=== PATIENT | male | born 1950 | race Two or more races ===

== ENCOUNTER 2016-07-27 17:26 | Inpatient (IN) | payer OTHER ==
[~2016-07-27] VITALS: Ht 165.1 cm; Wt 99.4 kg
[~2016-07-27 17:26] MED LIST: METF-490 PO; METO25TA5; OMEP20CA5 PO; [UNRECOGNIZED DRUG - CODE]
[2016-07-27] MEDS ORDERED: ALBUTEROL SULF 2.5 MG/0.5ML(0.5%) NEB SOLN ONE (21:41)
[2016-07-27] MEDS ORDERED: methylPREDNISolone SOD SUCC 125 MG/2 ML VL IM ONE (21:45)
[2016-07-27] MEDS ORDERED: ALBUTEROL SULF 2.5 MG/0.5ML(0.5%) NEB SOLN NEB ONE (21:45)
[2016-07-27] MEDS ORDERED: IPRATROPIUM BROM 0.5 MG/2.5ML INH SOL NEB ONE (21:45)
[2016-07-27 22:22] LABS: Albumin 3.8 g/dL (3.4-5.0); BUN/Creatinine Ratio 19.8; Calcium 8.1 mg/dL (8.5-10.1); Potassium 4.1 mmol/L (3.5-5.1)
[2016-07-27 22:24] LABS: Bilirubin, Total 0.4 mg/dL (0.2-1.0); Total Protein 7.8 g/dL (6.4-8.2)
[2016-07-27 22:32] LABS: Basophils # (auto) 0 uL; Basophils % (auto) 0.3 % (0.0-2.0); DEFINITIVE VIEW TRANSMISSION; Eosinophils # (auto) 0.5 uL; Eosinophils % (auto) 6.2 % (0.0-7.0); Hematocrit 42.7 % (41.0-53.0); Hemoglobin 13.4 g/dL (13.5-17.5); Lymphocytes % (auto) 24.3 % (10.0-50.0); Mean Corpuscular Hemoglobin 25.2 pg (28.0-32.0); Mean Corpuscular Hgb Conc. 31.5 g/dL (32.0-36.0); Mean Platelet Volume 8.9 fL (7.4-10.4); Monocytes # (auto) 0.7 uL; Neutrophils % (auto) 60.2 % (37.0-80.0); Platelet Count (auto) 276 10^3/uL (140-450); White Blood Cell 8.3 10^3/uL (4.4-10.8)
[2016-07-27 22:35] LABS: Red Cell Distribution Width 21.4 % (11.6-16.0)
[2016-07-27 22:37] LABS: B-Type Natriuretic Peptide 207.4 pg/mL (0-100)
[2016-07-27 22:58] LABS: Anisocytosis Slight; Hypochromia Slight; Platelet Estimate Adequate
[2016-07-28] VITALS (7 sets, daily range): BP systolic 139–179; BP diastolic 75–97
[2016-07-28] MEDS ORDERED: NITROGLYCERIN 0.4 MG SL TAB SL PRN
[2016-07-28] MEDS ORDERED: DEXTROSE (50%) 50ML SYRG IV PRN
[2016-07-28] MEDS ORDERED: MORPHINE SULF INJ 2 MG/ML SYRINGE 1ML IV PRN
[2016-07-28] MEDS ORDERED: cefTRIAXone 1GM/50ML D5W 50 ML IV ONE
[2016-07-28] MEDS ORDERED: ZOLPIDEM TARTRATE 5 MG TAB PO PRN (02:00)
[2016-07-28] MEDS: cloNIDine HCL 0.1 MG TAB PO PRN (02:09)
[2016-07-28] MEDS: HYDROcodone-ACET 10/325MG TAB PO PRN ×3 (02:09→15:25)
[2016-07-28] MEDS: ALBUTEROL SULF 2.5 MG/0.5ML(0.5%) NEB SOLN NEB SCH ×6 (03:26→22:26)
[2016-07-28] MEDS: IPRATROPIUM BROM 0.5 MG/2.5ML INH SOL NEB SCH ×6 (03:26→22:26)
[2016-07-28 05:22] LABS: Basophils # (auto) 0 uL; Basophils % (auto) 0.2 % (0.0-2.0); DEFINITIVE VIEW TRANSMISSION; Eosinophils # (auto) 0 uL; Eosinophils % (auto) 0.1 % (0.0-7.0); Hematocrit 43.3 % (41.0-53.0); Hemoglobin 13.6 g/dL (13.5-17.5); Lymphocytes % (auto) 11.9 % (10.0-50.0); Mean Corpuscular Hemoglobin 25.2 pg (28.0-32.0); Mean Corpuscular Hgb Conc. 31.5 g/dL (32.0-36.0); Mean Corpuscular Volume 79.9 fL (80.0-100.0); Mean Platelet Volume 9.6 fL (7.4-10.4); Monocytes # (auto) 0 uL; Monocytes % (auto) 0.5 % (0.0-12.0); Neutrophils # (auto) 7.5 uL; Neutrophils % (auto) 87.3 % (37.0-80.0); Platelet Count (auto) 270 10^3/uL (140-450); White Blood Cell 8.5 10^3/uL (4.4-10.8)
[2016-07-28] MEDS: SODIUM CHLOR 0.9% PF (SALINE LOCK) 10ML VIAL IV SCH ×3 (05:25→21:59)
[2016-07-28] MEDS: ACCU-CHEK COMFORT CURVE STRIP VI SCH ×5 (05:26→23:21)
[2016-07-28] MEDS: GABAPENTIN 300 MG CAP PO SCH ×3 (05:30→22:00)
[2016-07-28 05:31] LABS: Red Cell Distribution Width 21.5 % (11.6-16.0)
[2016-07-28] MEDS: hydrALAZINE HCL 25 MG TAB PO SCH ×3 (05:31→21:59)
[2016-07-28] MEDS: InsuLIN REG 1unit/0.01ml Soln (100units/ml) SC SCH ×4 (05:35→17:18)
[2016-07-28 05:42] LABS: Anisocytosis Slight; Hypochromia Slight; Ovalocytes FEW; Platelet Estimate Adequate
[2016-07-28 05:43] LABS: Microcytosis Slight
[2016-07-28 05:44] LABS: Hypersegmented Neutrophils Present
[2016-07-28 05:52] LABS: Albumin 3.7 g/dL (3.4-5.0); BUN/Creatinine Ratio 21.5; Bilirubin, Total 0.5 mg/dL (0.2-1.0); Calcium 8.5 mg/dL (8.5-10.1); Potassium 4.6 mmol/L (3.5-5.1); Total Protein 7.9 g/dL (6.4-8.2)
[2016-07-28 06:48] LABS: B-Type Natriuretic Peptide 149.35 pg/mL (0-100); Temperature: 22.5 C (20.0-25.0)
[2016-07-28] MEDS ORDERED: CLOP75TA41 PO (09:35)
[2016-07-28] MEDS ORDERED: ATOR20TA50 PO (09:36)
[2016-07-28] MEDS ORDERED: GABA-494 PO (09:37)
[2016-07-28] MEDS ORDERED: ASPI81TA27 PO (09:38)
[2016-07-28] MEDS ORDERED: HYDR-2651 PO (09:39)
[2016-07-28] MEDS ORDERED: INSR100KIT SC (09:41)
[2016-07-28] MEDS ORDERED: ENOXAPARIN SOD 30 MG/0.3 ML SYRINGE SC SCH (10:00)
[2016-07-28] MEDS ORDERED: POTASSIUM CHL 20 Meq TABLET PO SCH (10:00)
[2016-07-28] MEDS ORDERED: FUROSEMIDE 40 MG/4 ML VIAL IV SCH (10:00)
[2016-07-28] MEDS ORDERED: methylPREDNISolone SOD SUCC 40 MG/ML VL IV SCH (10:00)
[2016-07-28] MEDS: CLOPIDOGREL BISULFATE 75 MG TAB PO SCH (10:02)
[2016-07-28] MEDS: ENOXAPARIN SOD 40 MG/0.4 ML SYRINGE SC SCH (10:03)
[2016-07-28] MEDS: PANTOPRAZOLE SODIUM 40 MG/10 ML VIAL IV SCH (10:03)
[2016-07-28] MEDS ORDERED: guaiFENesin-COD 10 ML UD PO PRN (18:00)
[2016-07-28] MEDS ORDERED: SODIUM CHLORIDE 0.9% 500 ML IV ONE (18:00)
[2016-07-28] MEDS: cefTRIAXone 1GM/50ML D5W 50 ML IV SCH (20:22)
[2016-07-28] MEDS: SODIUM CHLORIDE 0.9% 1,000 ML IV SCH (20:22)
[2016-07-28] MEDS: MORPHINE SULF INJ 2 MG/ML SYRINGE 1ML IV PRN (20:37)
[2016-07-28] MEDS: METOPROLOL TARTRATE 25 MG TAB PO SCH (22:00)
[2016-07-28] MEDS ORDERED: OSELTAMIVIR 75 MG CAP PO SCH (22:00)
[2016-07-28] MEDS ORDERED: ATORVASTATIN 20 MG TAB PO SCH (22:00)
[2016-07-29] MEDS: ALBUTEROL SULF 2.5 MG/0.5ML(0.5%) NEB SOLN NEB SCH ×6 (02:00→22:47)
[2016-07-29] MEDS: IPRATROPIUM BROM 0.5 MG/2.5ML INH SOL NEB SCH ×6 (02:00→22:00)
[2016-07-29] MEDS: MORPHINE SULF INJ 2 MG/ML SYRINGE 1ML IV PRN ×3 (03:28→15:50)
[2016-07-29 04:41] VITALS: BP 144/99
[2016-07-29] MEDS: hydrALAZINE HCL 25 MG TAB PO SCH ×3 (05:51→21:50)
[2016-07-29] MEDS: SODIUM CHLORIDE 0.9% 1,000 ML IV SCH ×3 (05:51→21:51)
[2016-07-29] MEDS: SODIUM CHLOR 0.9% PF (SALINE LOCK) 10ML VIAL IV SCH ×3 (05:51→21:50)
[2016-07-29] MEDS: ACCU-CHEK COMFORT CURVE STRIP VI SCH ×4 (05:52→21:52)
[2016-07-29] MEDS: GABAPENTIN 300 MG CAP PO SCH ×3 (05:52→21:51)
[2016-07-29] MEDS: InsuLIN REG 1unit/0.01ml Soln (100units/ml) SC SCH ×5 (06:12→21:52)
[2016-07-29 06:25] LABS: Basophils # (auto) 0 uL; DEFINITIVE VIEW TRANSMISSION; Eosinophils # (auto) 0 uL; Eosinophils % (auto) 0.2 % (0.0-7.0); Hematocrit 40.7 % (41.0-53.0); Hemoglobin 13.1 g/dL (13.5-17.5); Lymphocytes # (auto) 1.4 uL; Lymphocytes % (auto) 13.5 % (10.0-50.0); Mean Corpuscular Hemoglobin 25.6 pg (28.0-32.0); Mean Corpuscular Hgb Conc. 32.1 g/dL (32.0-36.0); Mean Corpuscular Volume 79.6 fL (80.0-100.0); Monocytes # (auto) 0.9 uL; Monocytes % (auto) 9.2 % (0.0-12.0); Neutrophils # (auto) 7.7 uL; Neutrophils % (auto) 77.1 % (37.0-80.0); Platelet Count (auto) 269 10^3/uL (140-450)
[2016-07-29 06:37] LABS: BUN/Creatinine Ratio 24.1; Calcium 8.2 mg/dL (8.5-10.1); Potassium 4.1 mmol/L (3.5-5.1)
[2016-07-29 07:50] LABS: Red Cell Distribution Width 20.7 % (11.6-16.0)
[2016-07-29 07:51] LABS: Anisocytosis Slight
[2016-07-29 07:52] LABS: Hypochromia Slight; Microcytosis Slight; Platelet Estimate Adequate
[2016-07-29 08:09] VITALS: BP 157/85
[2016-07-29] MEDS: CLOPIDOGREL BISULFATE 75 MG TAB PO SCH (09:42)
[2016-07-29] MEDS: ENOXAPARIN SOD 40 MG/0.4 ML SYRINGE SC SCH (09:43)
[2016-07-29] MEDS: METOPROLOL TARTRATE 25 MG TAB PO SCH ×2 (09:43→21:51)
[2016-07-29] MEDS: PANTOPRAZOLE SODIUM 40 MG/10 ML VIAL IV SCH (09:43)
[2016-07-29 12:23] VITALS: BP 167/99
[2016-07-29] MEDS ORDERED: ZOLPIDEM TARTRATE 5 MG TAB PO PRN (13:15)
[2016-07-29] MEDS ORDERED: ACETAMINOPHEN/CODEINE#3 (300/30mg) TAB PO PRN (13:15)
[2016-07-29] MEDS: AZITHROMYCIN 500MG/D5W 250ML 250 ML IV SCH (15:55)
[2016-07-29 17:01] VITALS: BP 171/87
[2016-07-29] MEDS: cefTRIAXone 1GM/50ML D5W 50 ML IV SCH (21:50)
[2016-07-29] MEDS: LACTULOSE 20Gm/30ML SOLN PO PRN (21:52)
[2016-07-29 22:00] VITALS: BP 164/99
[2016-07-29] MEDS ORDERED: ATORVASTATIN 20 MG TAB PO SCH (22:00)
[2016-07-29] MEDS: cloNIDine HCL 0.1 MG TAB PO PRN (23:41)
[2016-07-30] MEDS: ALBUTEROL SULF 2.5 MG/0.5ML(0.5%) NEB SOLN NEB SCH ×4 (02:17→14:19)
[2016-07-30] MEDS: IPRATROPIUM BROM 0.5 MG/2.5ML INH SOL NEB SCH ×4 (02:17→14:19)
[2016-07-30 05:00] VITALS: BP 149/98
[2016-07-30 06:03] LABS: Basophils # (auto) 0 uL; Basophils % (auto) 0.5 % (0.0-2.0); DEFINITIVE VIEW TRANSMISSION; Eosinophils # (auto) 0.1 uL; Eosinophils % (auto) 2.5 % (0.0-7.0); Hematocrit 41.7 % (41.0-53.0); Hemoglobin 13.3 g/dL (13.5-17.5); Lymphocytes # (auto) 1.5 uL; Lymphocytes % (auto) 26.9 % (10.0-50.0); Mean Corpuscular Hemoglobin 25.4 pg (28.0-32.0); Mean Corpuscular Hgb Conc. 31.8 g/dL (32.0-36.0); Mean Corpuscular Volume 79.9 fL (80.0-100.0); Mean Platelet Volume 9.1 fL (7.4-10.4); Monocytes # (auto) 0.7 uL; Monocytes % (auto) 12.3 % (0.0-12.0); Neutrophils # (auto) 3.2 uL; Neutrophils % (auto) 57.8 % (37.0-80.0); Platelet Count (auto) 265 10^3/uL (140-450); White Blood Cell 5.5 10^3/uL (4.4-10.8)
[2016-07-30 06:04] LABS: Red Cell Distribution Width 20.6 % (11.6-16.0)
[2016-07-30 06:15] LABS: BUN/Creatinine Ratio 19.8; Calcium 8.1 mg/dL (8.5-10.1); Magnesium 1.9 mg/dL (1.6-2.6); Potassium 3.9 mmol/L (3.5-5.1)
[2016-07-30] MEDS: GABAPENTIN 300 MG CAP PO SCH (06:32)
[2016-07-30] MEDS: hydrALAZINE HCL 25 MG TAB PO SCH (06:32)
[2016-07-30] MEDS: SODIUM CHLOR 0.9% PF (SALINE LOCK) 10ML VIAL IV SCH (06:32)
[2016-07-30] MEDS: ACCU-CHEK COMFORT CURVE STRIP VI SCH ×2 (06:32→12:13)
[2016-07-30] MEDS: InsuLIN REG 1unit/0.01ml Soln (100units/ml) SC SCH ×2 (06:32→12:14)
[2016-07-30] MEDS: MORPHINE SULF INJ 2 MG/ML SYRINGE 1ML IV PRN ×2 (06:33→13:12)
[2016-07-30] MEDS: LACTULOSE 20Gm/30ML SOLN PO PRN (06:33)
[2016-07-30 08:30] LABS: Anisocytosis Slight; Hypochromia Slight; Microcytosis Slight; Ovalocytes FEW; Platelet Estimate Adequate
[2016-07-30 08:40] VITALS: BP 134/71
[2016-07-30] MEDS: ENOXAPARIN SOD 40 MG/0.4 ML SYRINGE SC SCH (10:17)
[2016-07-30] MEDS: CLOPIDOGREL BISULFATE 75 MG TAB PO SCH (10:17)
[2016-07-30] MEDS: METOPROLOL TARTRATE 25 MG TAB PO SCH (10:18)
[2016-07-30] MEDS: PANTOPRAZOLE SODIUM 40 MG/10 ML VIAL IV SCH (10:19)
[2016-07-30] MEDS: SODIUM CHLORIDE 0.9% 1,000 ML IV SCH (10:19)
[2016-07-30] MEDS: AZITHROMYCIN 500MG/D5W 250ML 250 ML IV SCH (10:19)
[2016-07-30] MEDS ORDERED: ACE3T PO (10:59)
[2016-07-30] MEDS ORDERED: GUA200LQ GT (11:04)
[2016-07-30] MEDS ORDERED: AZI250T PO (11:04)
[2016-07-30] MEDS ORDERED: CEPH-37 PO (11:04)
[2016-07-30 13:00] VITALS: BP 117/70
[2016-07-30 15:09] VITALS: BP 117/70
[2016-07-30 15:43] VITALS: BP 117/70
== END 2016-07-30 15:43 | disposition home or self-care (01) | DRG 190 ==
LOC: ER 17:37 → TELE-WESTW 17:38
PROVIDERS: ADMIT Family Medicine; ATTEND Internal Medicine
DX: J44.0 Chronic obstructive pulmonary disease with (acute) lower respiratory infection (principal); J18.9 Pneumonia, unspecified organism; M62.82 Rhabdomyolysis; I11.0 Hypertensive heart disease with heart failure; I50.9 Heart failure, unspecified; J20.9 Acute bronchitis, unspecified; E78.5 Hyperlipidemia, unspecified; R07.89 Other chest pain; B19.20 Unspecified viral hepatitis C without hepatic coma; E11.51 Type 2 diabetes mellitus with diabetic peripheral angiopathy without gangrene; E66.01 Morbid (severe) obesity due to excess calories; E86.0 Dehydration; I25.10 Atherosclerotic heart disease of native coronary artery without angina pectoris; I70.0 Atherosclerosis of aorta; K21.9 Gastro-esophageal reflux disease without esophagitis; J45.909 Unspecified asthma, uncomplicated; X58.XXXA Exposure to other specified factors, initial encounter; Y93.89 Activity, other specified; Y92.89 Other specified places as the place of occurrence of the external cause; Z68.36 Body mass index [BMI] 36.0-36.9, adult
CPT/HCPCS: 36415; 71010; 71250; 80048; 80053; 80061; 82550; 82962; 83036; 83735; 83880; 84484; 85025; 85049; 87400; 93005; 93306; 94640; 96365; 96372; C9113; J0696; J1815

== ENCOUNTER 2017-01-01 04:35 | Emergency (ER) | payer OTHER ==
[~2017-01-01] VITALS: Ht 167.6 cm; Wt 108.9 kg
[~2017-01-01 04:35] MED LIST changes: +ACE3T PO; +ASPI81TA27 PO; +ATOR20TA50 PO; +AZI250T PO; +CEPH-37 PO; +CLOP75TA41 PO; +GABA-494 PO; +GUA200LQ GT; +HYDR-2651 PO; +INSR100KIT SC; -OMEP20CA5 PO; +OMEP20CA74 PO
[2017-01-01 05:30] LABS: Basophils # (auto) 0 uL; Basophils % (auto) 0.7 % (0.0-2.0); CONDITION Y; DEFINITIVE SEE PRINTOUT; Eosinophils # (auto) 0.4 uL; Eosinophils % (auto) 6.6 % (0.0-7.0); Hematocrit 36.2 % (41.0-53.0); Hemoglobin 11.8 g/dL (13.5-17.5); Lymphocytes # (auto) 1.6 uL; Lymphocytes % (auto) 24.4 % (10.0-50.0); Mean Corpuscular Hemoglobin 25.3 pg (28.0-32.0); Mean Corpuscular Hgb Conc. 32.7 g/dL (32.0-36.0); Mean Corpuscular Volume 77.5 fL (80.0-100.0); Mean Platelet Volume 9.1 fL (7.4-10.4); Monocytes # (auto) 0.8 uL; Monocytes % (auto) 11.6 % (0.0-12.0); Neutrophils # (auto) 3.8 uL; Neutrophils % (auto) 56.7 % (37.0-80.0); Platelet Count (auto) 249 10^3/uL (140-450); Red Cell Distribution Width 18.1 % (11.6-16.0); White Blood Cell 6.7 10^3/uL (4.4-10.8)
[2017-01-01 06:00] LABS: Albumin 3.8 g/dL (3.4-5.0); BUN/Creatinine Ratio 17.6; Calcium 8.3 mg/dL (8.5-10.1); Potassium 4.3 mmol/L (3.5-5.1); Total Protein 7.5 g/dL (6.4-8.2)
[2017-01-01] MEDS ORDERED: ATOR40TA52 PO (07:38)
[2017-01-01] MEDS ORDERED: MET50T PO (07:38)
[2017-01-01] MEDS ORDERED: OMEP20CA74 PO (07:38)
[2017-01-01] MEDS ORDERED: ASPI-231 PO (07:38)
[2017-01-01] MEDS ORDERED: GABA-497 PO (07:38)
[2017-01-01 09:24] LABS: Urine RBC None Seen /hpf (0 - 3)
[2017-01-01] MEDS ORDERED: FUROSEMIDE 40 MG/4 ML VIAL IV ONE (09:30)
[2017-01-01] MEDS ORDERED: SPIRONOLACTONE 25 MG TAB PO ONE (09:30)
[2017-01-01 09:48] LABS: Urine Bilirubin Negative (Negative); Urine Blood Negative /uL (Negative); Urine Color Yellow (Yellow); Urine Glucose Normal (Normal); Urine Ketone Negative (Negative); Urine Nitrite Negative (Negative); Urine Squamous Epithelial Cell FEW /hpf (<5); Urine Urobilinogen Normal (Negative); Urine pH 6.5 (5.0-8.0)
[2017-01-01] MEDS ORDERED: GABAPENTIN 100 MG CAP PO ONE (12:30)
[2017-01-01 12:54] VITALS: BP 143/45
== END 2017-01-01 13:06 | disposition home or self-care (01) ==
LOC: ER 04:35
DX: R06.02 Shortness of breath (principal); R18.8 Other ascites; R10.84 Generalized abdominal pain; I15.2 Hypertension secondary to endocrine disorders; G63 Polyneuropathy in diseases classified elsewhere; K21.9 Gastro-esophageal reflux disease without esophagitis; E11.9 Type 2 diabetes mellitus without complications; Z68.35 Body mass index [BMI] 35.0-35.9, adult; E66.9 Obesity, unspecified; Z95.0 Presence of cardiac pacemaker
CPT/HCPCS: 36415; 71010; 74176; 80053; 81001; 83690; 83735; 84484; 85025; 93005; 96374; 99285; J1940

== ENCOUNTER 2017-02-26 11:45 | Inpatient (IN) | payer OTHER ==
[~2017-02-26] VITALS: Ht 170.2 cm; Wt 103.6 kg
[~2017-02-26 11:45] MED LIST changes: +ASPI-231 PO; -ASPI81TA27 PO; -ATOR20TA50 PO; +ATOR40TA52 PO; -AZI250T PO; -CEPH-37 PO; -GABA-494 PO; +GABA-497 PO; -GUA200LQ GT; +MET50T PO; -METO25TA5
[2017-02-26 12:28] LABS: Basophils # (auto) 0 uL; Basophils % (auto) 0.3 % (0.0-2.0); CONDITION Y; DEFINITIVE SEE PRINTOUT; Eosinophils # (auto) 0.5 uL; Eosinophils % (auto) 9.3 % (0.0-7.0); Hematocrit 40.8 % (41.0-53.0); Hemoglobin 13.5 g/dL (13.5-17.5); Lymphocytes # (auto) 1.7 uL; Lymphocytes % (auto) 34.3 % (10.0-50.0); Mean Corpuscular Hemoglobin 26.4 pg (28.0-32.0); Mean Corpuscular Volume 80.2 fL (80.0-100.0); Mean Platelet Volume 8.3 fL (7.4-10.4); Monocytes # (auto) 0.6 uL; Monocytes % (auto) 11.8 % (0.0-12.0); Neutrophils # (auto) 2.2 uL; Neutrophils % (auto) 44.3 % (37.0-80.0); Platelet Count (auto) 325 10^3/uL (140-450); White Blood Cell 4.9 10^3/uL (4.4-10.8)
[2017-02-26 12:41] LABS: Red Cell Distribution Width 23.6 % (11.6-16.0)
[2017-02-26 12:44] LABS: INR 1.15 (0.9-1.15); Partial Thromboplastin Time 27.4 sec (22.64-33.71); Prothrombin Time 12.5 sec (9.37-12.3)
[2017-02-26 12:47] LABS: Albumin 3.5 g/dL (3.4-5.0); BUN/Creatinine Ratio 17.9; Calcium 8.3 mg/dL (8.5-10.1); Potassium 4.4 mmol/L (3.5-5.1)
[2017-02-26 12:50] LABS: Bilirubin, Total 0.7 mg/dL (0.2-1.0); Total Protein 7.8 g/dL (6.4-8.2)
[2017-02-26 13:20] LABS: Anisocytosis Slight; Hypochromia Slight; Ovalocytes FEW; Platelet Estimate Adequate
[2017-02-26 13:32] LABS: Urine Bilirubin Negative (Negative); Urine Blood Negative /uL (Negative); Urine Color Yellow (Yellow); Urine Glucose Normal (Normal); Urine Ketone Negative (Negative); Urine Mucus FEW (None Seen); Urine Nitrite Negative (Negative); Urine RBC 1 /hpf (0 - 3)
[2017-02-26] MEDS ORDERED: ASPirin-EC 81 mg tab PO ONE (14:15)
[2017-02-26] MEDS ORDERED: ACETAMINOPHEN 325 MG TAB PO PRN (18:15)
[2017-02-26] MEDS ORDERED: DEXTROSE (50%) 50ML SYRG IV PRN (18:15)
[2017-02-26] MEDS ORDERED: DOCUSATE SOD 100 MG CAP PO PRN (18:15)
[2017-02-26] MEDS ORDERED: ONDANSETRON HCL 4 MG/2 ML VIAL IV PRN (18:15)
[2017-02-26] MEDS ORDERED: cloNIDine HCL 0.1 MG TAB PO PRN (18:15)
[2017-02-26] MEDS ORDERED: NITROGLYCERIN 0.4 MG SL TAB SL PRN (18:15)
[2017-02-26] MEDS ORDERED: MORPHINE SULF INJ 2 MG/ML SYRINGE 1ML IV PRN ×2 (18:15)
[2017-02-26] MEDS ORDERED: TEMAZEPAM 15 MG CAP PO PRN (18:15)
[2017-02-26] MEDS ORDERED: ACETAMINOPHEN/CODEINE#3 (300/30mg) TAB PO PRN (18:45)
[2017-02-26] MEDS ORDERED: guaiFENesin 200 MG/10 ML UD PO PRN (19:00)
[2017-02-26] MEDS: SODIUM CHLORIDE 0.9% 1,000 ML IV SCH (19:39)
[2017-02-26 20:31] VITALS: BP 135/97
[2017-02-26 21:00] VITALS: BP 135/97
[2017-02-26] MEDS: hydrALAZINE HCL 25 MG TAB PO SCH (22:00)
[2017-02-26] MEDS ORDERED: FAMOTIDINE 20 MG TAB PO SCH (22:00)
[2017-02-26] MEDS: METOPROLOL TARTRATE 25 MG TAB PO SCH (22:00)
[2017-02-26] MEDS ORDERED: ATORVASTATIN 20 MG TAB PO SCH ×2 (22:00)
[2017-02-26] MEDS: CLINDAMYCIN 300MG IV 50 ML IV SCH (22:14)
[2017-02-26 22:15] VITALS: BP 109/51
[2017-02-26] MEDS: ASCORBIC ACID 500 MG TAB PO SCH (22:16)
[2017-02-26] MEDS: GABAPENTIN 100 MG CAP PO SCH (22:16)
[2017-02-26] MEDS: ACCU-CHEK COMFORT CURVE STRIP VI SCH (22:17)
[2017-02-26] MEDS: InsuLIN REG 1unit/0.01ml Soln (100units/ml) SC SCH (22:17)
[2017-02-27] VITALS (7 sets, daily range): BP systolic 105–130; BP diastolic 41–88
[2017-02-27] MEDS ORDERED: INSLANTI SC (00:33)
[2017-02-27] MEDS ORDERED: [UNRECOGNIZED DRUG - CODE] (00:36)
[2017-02-27] MEDS ORDERED: ACET-1156 PO (04:28)
[2017-02-27 04:45] LABS: Basophils # (auto) 0 uL; Basophils % (auto) 0.5 % (0.0-2.0); CONDITION Y; DEFINITIVE SEE PRINTOUT; Eosinophils # (auto) 0.5 uL; Eosinophils % (auto) 10.7 % (0.0-7.0); Hematocrit 40.6 % (41.0-53.0); Hemoglobin 13.3 g/dL (13.5-17.5); Lymphocytes # (auto) 1.4 uL; Lymphocytes % (auto) 31.5 % (10.0-50.0); Mean Corpuscular Hemoglobin 26.2 pg (28.0-32.0); Mean Corpuscular Hgb Conc. 32.8 g/dL (32.0-36.0); Mean Corpuscular Volume 79.9 fL (80.0-100.0); Mean Platelet Volume 8.3 fL (7.4-10.4); Monocytes # (auto) 0.5 uL; Monocytes % (auto) 11.7 % (0.0-12.0); Neutrophils % (auto) 45.6 % (37.0-80.0); Platelet Count (auto) 304 10^3/uL (140-450); White Blood Cell 4.4 10^3/uL (4.4-10.8)
[2017-02-27 05:05] LABS: Albumin 3.5 g/dL (3.4-5.0); BUN/Creatinine Ratio 22.1; Calcium 8.4 mg/dL (8.5-10.1); Potassium 3.8 mmol/L (3.5-5.1)
[2017-02-27 05:17] LABS: Bilirubin, Total 0.8 mg/dL (0.2-1.0); Total Protein 7.5 g/dL (6.4-8.2)
[2017-02-27] MEDS: CLINDAMYCIN 300MG IV 50 ML IV SCH ×2 (06:00→14:23)
[2017-02-27] MEDS: hydrALAZINE HCL 25 MG TAB PO SCH ×2 (06:01→14:23)
[2017-02-27] MEDS: SPIRONOLACTONE 25 MG TAB PO SCH ×2 (06:01→17:43)
[2017-02-27] MEDS: GABAPENTIN 100 MG CAP PO SCH ×2 (06:01→14:23)
[2017-02-27] MEDS ORDERED: INSULIN DETEMIR(LEVEMIR) 1unit/0.01ml Soln (100units/ml) SC SCH (07:00)
[2017-02-27] MEDS: ACCU-CHEK COMFORT CURVE STRIP VI SCH ×3 (07:04→17:00)
[2017-02-27] MEDS: InsuLIN REG 1unit/0.01ml Soln (100units/ml) SC SCH ×3 (07:07→17:00)
[2017-02-27 08:26] LABS: Anisocytosis Slight; Hypochromia Slight; Platelet Estimate Adequate
[2017-02-27] MEDS ORDERED: PANTOPRAZOLE 40 MG TAB PO SCH (10:00)
[2017-02-27] MEDS ORDERED: ZINC SULFATE 220 MG CAP PO SCH (10:00)
[2017-02-27] MEDS ORDERED: ASPirin-EC 81 mg tab PO SCH (10:00)
[2017-02-27] MEDS ORDERED: MULTIPLE VITAMIN TAB PO SCH (10:00)
[2017-02-27] MEDS ORDERED: CLOPIDOGREL BISULFATE 75 MG TAB PO SCH (10:00)
[2017-02-27] MEDS ORDERED: ENOXAPARIN SOD 40 MG/0.4 ML SYRINGE SC SCH (10:00)
[2017-02-27] MEDS ORDERED: FUROSEMIDE 40 MG TAB PO SCH (10:00)
[2017-02-27] MEDS: HYDROcodone-ACET 5/325MG TAB PO PRN ×2 (10:20→16:12)
[2017-02-27] MEDS: ASCORBIC ACID 500 MG TAB PO SCH (10:42)
[2017-02-27] MEDS: SODIUM CHLORIDE 0.9% 1,000 ML IV SCH (10:43)
[2017-02-27] MEDS: METOPROLOL TARTRATE 25 MG TAB PO SCH (10:43)
[2017-02-27 13:25] LABS: Cholesterol 108 mg/dL (< 200); HDL Cholesterol 39 mg/dL (40-59); LDL Cholesterol 57 mg/dL (< 100); Triglycerides 179 mg/dL (< 150)
[2017-02-27] MEDS ORDERED: IOHEXOL 350 MG/ML 100ML IJ ONE (13:57)
[2017-02-27] MEDS ORDERED: LORazepam 2MG/ML-1ML VIAL IV ONE (14:00)
== END 2017-02-27 20:00 | disposition home or self-care (01) | DRG 291 ==
LOC: ER 11:45 → TELE 11:46 → DOU IN ICU 20:15
PROVIDERS: ADMIT Internal Medicine; ATTEND Internal Medicine
DX: I13.0 Hypertensive heart and chronic kidney disease with heart failure and stage 1 through stage 4 chronic kidney disease, or unspecified chronic kidney disease (principal); I63.9 Cerebral infarction, unspecified; I50.42 Chronic combined systolic (congestive) and diastolic (congestive) heart failure; G81.91 Hemiplegia, unspecified affecting right dominant side; E10.21 Type 1 diabetes mellitus with diabetic nephropathy; D63.8 Anemia in other chronic diseases classified elsewhere; E10.22 Type 1 diabetes mellitus with diabetic chronic kidney disease; I25.10 Atherosclerotic heart disease of native coronary artery without angina pectoris; K21.9 Gastro-esophageal reflux disease without esophagitis; M54.9 Dorsalgia, unspecified; G89.29 Other chronic pain; F41.9 Anxiety disorder, unspecified; F32.9 Major depressive disorder, single episode, unspecified; E03.9 Hypothyroidism, unspecified; E78.5 Hyperlipidemia, unspecified; R47.81 Slurred speech; E66.9 Obesity, unspecified; Z80.0 Family history of malignant neoplasm of digestive organs; I65.29 Occlusion and stenosis of unspecified carotid artery; F10.20 Alcohol dependence, uncomplicated; N18.2 Chronic kidney disease, stage 2 (mild); Z68.35 Body mass index [BMI] 35.0-35.9, adult; Z83.3 Family history of diabetes mellitus; Z79.4 Long term (current) use of insulin; Z79.82 Long term (current) use of aspirin; Z71.41 Alcohol abuse counseling and surveillance of alcoholic; Z91.14 Patient's other noncompliance with medication regimen
CPT/HCPCS: 36415; 70450; 70496; 70498; 71010; 80053; 80061; 80307; 80320; 81001; 82962; 83036; 84443; 84484; 85025; 85610; 85730; 87081; 92610; 93005; 93886; 94761; 97163; J1815; J3490

== ENCOUNTER 2017-03-20 16:47 | Emergency (ER) | payer OTHER ==
[~2017-03-20] VITALS: Ht 167.6 cm; Wt 108.9 kg
[~2017-03-20 16:47] MED LIST changes: -ACE3T PO; +ACET-1156 PO; +INSLANTI SC; -INSR100KIT SC; +[UNRECOGNIZED DRUG - CODE]
[2017-03-20 17:07] VITALS: BP 166/91
== END 2017-03-20 19:45 | disposition left against medical advice (07) ==
LOC: ER 16:52
DX: M79.672 Pain in left foot (principal); M79.671 Pain in right foot; Z53.21 Procedure and treatment not carried out due to patient leaving prior to being seen by health care provider

== ENCOUNTER 2017-03-21 02:49 | Inpatient (IN) | payer OTHER ==
[~2017-03-21] VITALS: Ht 170.2 cm; Wt 102.8 kg
[2017-03-21] MEDS ORDERED: SODIUM CHLORIDE 0.9% 1,000 ML IV ONE ×2 (03:40)
[2017-03-21] MEDS ORDERED: VANCOMYCIN 1GM/250ML D5W 250 ML IV ONE (03:45)
[2017-03-21 04:31] LABS: Basophils # (auto) 0.1 uL; Basophils % (auto) 2.3 % (0.0-2.0); Eosinophils # (auto) 0.4 uL; Eosinophils % (auto) 10.1 % (0.0-7.0); Hemoglobin 13.7 g/dL (13.5-17.5); Lymphocytes # (auto) 1.5 uL; Lymphocytes % (auto) 33.8 % (10.0-50.0); Mean Corpuscular Hemoglobin 26.7 pg (28.0-32.0); Mean Corpuscular Hgb Conc. 32.6 g/dL (32.0-36.0); Mean Corpuscular Volume 81.9 fL (80.0-100.0); Mean Platelet Volume 7.9 fL (7.4-10.4); Monocytes # (auto) 0.6 uL; Neutrophils # (auto) 1.8 uL; Neutrophils % (auto) 40.8 % (37.0-80.0); Platelet Count (auto) 269 10^3/uL (140-450); White Blood Cell 4.4 10^3/uL (4.4-10.8)
[2017-03-21 04:32] LABS: Albumin 3.8 g/dL (3.4-5.0); BUN/Creatinine Ratio 28.6; Bilirubin, Total 0.7 mg/dL (0.2-1.0); Calcium 8.9 mg/dL (8.5-10.1); Potassium 3.8 mmol/L (3.5-5.1); Total Protein 8.1 g/dL (6.4-8.2)
[2017-03-21 04:35] LABS: INR 1.12 (0.9-1.15); Partial Thromboplastin Time 27.9 sec (22.64-33.71); Prothrombin Time 12.2 sec (9.37-12.3)
[2017-03-21 04:38] LABS: Red Cell Distribution Width 23.6 % (11.6-16.0)
[2017-03-21 04:53] LABS: Anisocytosis Slight; Platelet Estimate Adequate
[2017-03-21 04:54] LABS: Ovalocytes FEW
[2017-03-21] MEDS ORDERED: HYDROcodone-ACET 5/325MG TAB PO ONE (05:45)
[2017-03-21 08:45] LABS: Urine Bilirubin Negative (Negative); Urine Blood Negative /uL (Negative); Urine Color Yellow (Yellow); Urine Glucose Normal (Normal); Urine Ketone Negative (Negative); Urine Mucus FEW (None Seen); Urine Nitrite Negative (Negative); Urine RBC <1 /hpf (0 - 3); Urine Urobilinogen Normal (Negative)
[2017-03-21] MEDS ORDERED: DEXTROSE (50%) 50ML SYRG IV PRN (08:45)
[2017-03-21] MEDS ORDERED: TEMAZEPAM 15 MG CAP PO PRN (09:00)
[2017-03-21] MEDS ORDERED: ONDANSETRON HCL 4 MG/2 ML VIAL IV PRN (09:00)
[2017-03-21] MEDS ORDERED: ACETAMINOPHEN 325 MG TAB PO PRN (09:00)
[2017-03-21] MEDS ORDERED: DOCUSATE SOD 100 MG CAP PO PRN (09:00)
[2017-03-21] MEDS: HYDROcodone-ACET 5/325MG TAB PO PRN ×2 (09:14→15:33)
[2017-03-21] MEDS: INSULIN DETEMIR(LEVEMIR) 1unit/0.01ml Soln (100units/ml) SC SCH ×2 (09:14→21:56)
[2017-03-21] MEDS: hydrALAZINE HCL 25 MG TAB PO SCH ×3 (09:15→21:55)
[2017-03-21] MEDS: MULTIPLE VITAMIN TAB PO SCH (10:00)
[2017-03-21] MEDS: CLOPIDOGREL BISULFATE 75 MG TAB PO SCH (10:00)
[2017-03-21] MEDS: OXYMETAZOLINE HCL 0.05 % NASAL SPRAY 15ML SCH ×2 (10:00→21:54)
[2017-03-21] MEDS ORDERED: FAMOTIDINE 20 MG TAB PO SCH (10:00)
[2017-03-21] MEDS: ASPirin-EC 81 mg tab PO SCH (10:00)
[2017-03-21] MEDS: PANTOPRAZOLE 40 MG TAB PO SCH (10:00)
[2017-03-21] MEDS: METOPROLOL TARTRATE 25 MG TAB PO SCH ×2 (10:00→21:55)
[2017-03-21] MEDS: ASCORBIC ACID 500 MG TAB PO SCH ×2 (10:00→21:55)
[2017-03-21] MEDS: ZINC SULFATE 220 MG CAP PO SCH (10:00)
[2017-03-21] MEDS: ACCU-CHEK COMFORT CURVE STRIP VI SCH ×3 (11:30→21:56)
[2017-03-21] MEDS: InsuLIN REG 1unit/0.01ml Soln (100units/ml) SC SCH ×3 (12:00→21:55)
[2017-03-21] MEDS: SODIUM CHLOR 0.9% PF (SALINE LOCK) 10ML VIAL IV SCH ×2 (13:50→21:54)
[2017-03-21] MEDS: GABAPENTIN 300 MG CAP PO SCH ×2 (14:06→21:55)
[2017-03-21] MEDS ORDERED: cloNIDine HCL 0.1 MG TAB PO PRN (17:15)
[2017-03-21 18:25] VITALS: BP 148/105
[2017-03-21 22:00] VITALS: BP 159/100
[2017-03-21] MEDS ORDERED: ATORVASTATIN 20 MG TAB PO SCH (22:00)
[2017-03-22] MEDS: MORPHINE SULF INJ 2 MG/ML SYRINGE 1ML IV PRN ×3 (00:33→09:39)
[2017-03-22 02:50] VITALS: BP 159/100
[2017-03-22 05:20] VITALS: BP 148/81
[2017-03-22] MEDS: hydrALAZINE HCL 25 MG TAB PO SCH ×2 (05:37→14:00)
[2017-03-22] MEDS: SODIUM CHLOR 0.9% PF (SALINE LOCK) 10ML VIAL IV SCH ×2 (05:37→15:24)
[2017-03-22] MEDS: GABAPENTIN 300 MG CAP PO SCH ×2 (05:38→14:00)
[2017-03-22 06:02] LABS: Basophils # (auto) 0.1 uL; Basophils % (auto) 1.2 % (0.0-2.0); Eosinophils # (auto) 0.5 uL; Eosinophils % (auto) 11.4 % (0.0-7.0); Hematocrit 40.2 % (41.0-53.0); Hemoglobin 13.3 g/dL (13.5-17.5); Lymphocytes # (auto) 1.5 uL; Lymphocytes % (auto) 31.8 % (10.0-50.0); Mean Corpuscular Hgb Conc. 33.1 g/dL (32.0-36.0); Mean Corpuscular Volume 81.6 fL (80.0-100.0); Mean Platelet Volume 8.1 fL (7.4-10.4); Monocytes # (auto) 0.6 uL; Monocytes % (auto) 13.3 % (0.0-12.0); Neutrophils # (auto) 1.9 uL; Neutrophils % (auto) 42.3 % (37.0-80.0); Nucleated Red Blood Cells % 0.1 %; Platelet Count (auto) 253 10^3/uL (140-450); White Blood Cell 4.6 10^3/uL (4.4-10.8)
[2017-03-22 06:07] LABS: Red Cell Distribution Width 23.6 % (11.6-16.0)
[2017-03-22 06:21] LABS: Albumin 3.7 g/dL (3.4-5.0); BUN/Creatinine Ratio 18.5; Calcium 8.5 mg/dL (8.5-10.1); Potassium 3.9 mmol/L (3.5-5.1)
[2017-03-22] MEDS: INSULIN DETEMIR(LEVEMIR) 1unit/0.01ml Soln (100units/ml) SC SCH (06:22)
[2017-03-22] MEDS: InsuLIN REG 1unit/0.01ml Soln (100units/ml) SC SCH ×3 (06:22→17:00)
[2017-03-22] MEDS: ACCU-CHEK COMFORT CURVE STRIP VI SCH ×3 (06:22→17:00)
[2017-03-22 06:24] LABS: Bilirubin, Total 0.6 mg/dL (0.2-1.0); Total Protein 7.6 g/dL (6.4-8.2)
[2017-03-22 06:50] LABS: Platelet Estimate Adequate
[2017-03-22 06:51] LABS: Anisocytosis Slight; Ovalocytes FEW
[2017-03-22 09:00] VITALS: BP 158/92
[2017-03-22] MEDS: MULTIPLE VITAMIN TAB PO SCH (09:40)
[2017-03-22] MEDS: ASPirin-EC 81 mg tab PO SCH (09:40)
[2017-03-22] MEDS: CLOPIDOGREL BISULFATE 75 MG TAB PO SCH (09:40)
[2017-03-22] MEDS: PANTOPRAZOLE 40 MG TAB PO SCH (09:40)
[2017-03-22] MEDS: ASCORBIC ACID 500 MG TAB PO SCH (09:40)
[2017-03-22] MEDS: ZINC SULFATE 220 MG CAP PO SCH (09:41)
[2017-03-22] MEDS: METOPROLOL TARTRATE 25 MG TAB PO SCH (09:41)
[2017-03-22] MEDS: OXYMETAZOLINE HCL 0.05 % NASAL SPRAY 15ML SCH (09:47)
[2017-03-22 13:00] VITALS: BP 116/72
[2017-03-22] MEDS ORDERED: DOXYCYCLINE 100 MG TAB/CAP PO ONE (13:00)
== END 2017-03-22 17:30 | disposition home or self-care (01) | DRG 638 ==
LOC: ER 02:49 → OVERFLOW 02:50 → CENTRAL 17:54
PROVIDERS: ADMIT Internal Medicine; ATTEND Internal Medicine
DX: E11.621 Type 2 diabetes mellitus with foot ulcer (principal); J98.11 Atelectasis; L97.529 Non-pressure chronic ulcer of other part of left foot with unspecified severity; L97.519 Non-pressure chronic ulcer of other part of right foot with unspecified severity; R65.10 Systemic inflammatory response syndrome (SIRS) of non-infectious origin without acute organ dysfunction; I13.10 Hypertensive heart and chronic kidney disease without heart failure, with stage 1 through stage 4 chronic kidney disease, or unspecified chronic kidney disease; E11.21 Type 2 diabetes mellitus with diabetic nephropathy; E11.22 Type 2 diabetes mellitus with diabetic chronic kidney disease; K21.9 Gastro-esophageal reflux disease without esophagitis; B95.62 Methicillin resistant Staphylococcus aureus infection as the cause of diseases classified elsewhere; E03.9 Hypothyroidism, unspecified; I70.0 Atherosclerosis of aorta; N18.2 Chronic kidney disease, stage 2 (mild); E66.9 Obesity, unspecified; E78.5 Hyperlipidemia, unspecified; F17.200 Nicotine dependence, unspecified, uncomplicated; I25.10 Atherosclerotic heart disease of native coronary artery without angina pectoris; L08.9 Local infection of the skin and subcutaneous tissue, unspecified; Z95.0 Presence of cardiac pacemaker; Z78.9 Other specified health status; Z68.35 Body mass index [BMI] 35.0-35.9, adult; Z79.4 Long term (current) use of insulin; Z80.0 Family history of malignant neoplasm of digestive organs; Z82.3 Family history of stroke; Z83.3 Family history of diabetes mellitus; Z86.14 Personal history of Methicillin resistant Staphylococcus aureus infection; Z82.61 Family history of arthritis; Z84.1 Family history of disorders of kidney and ureter
CPT/HCPCS: 36415; 71010; 80053; 81001; 82962; 83036; 83605; 84484; 85025; 85610; 85730; 87040; 87077; 87081; 87186; 87205; 94660; 96361; 96365; J1815

== ENCOUNTER 2017-05-30 10:24 | Emergency (ER) | payer OTHER ==
[~2017-05-30] VITALS: Ht 165.1 cm; Wt 104.3 kg
[~2017-05-30 10:24] MED LIST changes: -HYDR-2651 PO; +HYDR25TA35 PO
[2017-05-30 11:37] LABS: Basophils # (auto) 0.1 uL; Eosinophils # (auto) 0.1 uL; Mean Corpuscular Hemoglobin 26.7 pg (28.0-32.0); Mean Platelet Volume 8.3 fL (6.9-10.8); Monocytes # (auto) 0.6 uL; Neutrophils # (auto) 3.1 uL
[2017-05-30 11:40] LABS: Basophils % (auto) 1.1 % (0.0-2.0); Eosinophils % (auto) 2.8 % (0.0-7.0); Hematocrit 36.5 % (41.0-53.0); Hemoglobin 11.6 g/dL (13.5-17.5); Lymphocytes # (auto) 1.2 uL; Lymphocytes % (auto) 23.9 % (10.0-50.0); Mean Corpuscular Volume 83.6 fL (80.0-100.0); Monocytes % (auto) 11.6 % (0.0-12.0); Neutrophils % (auto) 60.6 % (37.0-80.0); Nucleated Red Blood Cells % 0.1 %; Platelet Count (auto) 211 10^3/uL (140-450); Red Cell Distribution Width 16.1 % (11.8-14.3); White Blood Cell 5.1 10^3/uL (4.4-10.8)
[2017-05-30 11:56] LABS: Albumin 3.7 g/dL (3.4-5.0); BUN/Creatinine Ratio 23.7; Bilirubin, Total 0.9 mg/dL (0.2-1.0); Calcium 8.3 mg/dL (8.5-10.1); Magnesium 1.8 mg/dL (1.6-2.6); Potassium 3.9 mmol/L (3.5-5.1)
[2017-05-30 16:15] VITALS: BP 140/70
[2017-05-30] MEDS ORDERED: HYDROmorphone HCL 2 MG/ML VL IM ONE (16:15)
[2017-05-30] MEDS ORDERED: ONDANSETRON ODT 4 MG TAB PO ONE (16:30)
== END 2017-05-30 16:02 | disposition home or self-care (01) ==
LOC: ER 10:24
DX: K70.31 Alcoholic cirrhosis of liver with ascites (principal); I25.10 Atherosclerotic heart disease of native coronary artery without angina pectoris; J44.9 Chronic obstructive pulmonary disease, unspecified; E11.9 Type 2 diabetes mellitus without complications; K21.9 Gastro-esophageal reflux disease without esophagitis; E78.5 Hyperlipidemia, unspecified; I10 Essential (primary) hypertension; M19.90 Unspecified osteoarthritis, unspecified site
CPT/HCPCS: 36415; 71020; 74176; 80053; 83735; 84484; 85025; 93005; 96372; 99285; J1170; Q0162

== ENCOUNTER 2017-06-03 12:43 | Inpatient (IN) | payer OTHER ==
[~2017-06-03] VITALS: Ht 170.2 cm; Wt 103.9 kg
[2017-06-03] MEDS ORDERED: ONDANSETRON ODT 4 MG TAB PO ONE (15:30)
[2017-06-03] MEDS ORDERED: MORPHINE SULF INJ 2 MG/ML SYRINGE 1ML IM ONE (15:30)
[2017-06-03 16:23] LABS: Basophils # (auto) 0.1 uL; Eosinophils # (auto) 0.2 uL; Lymphocytes # (auto) 1.3 uL; Nucleated Red Blood Cells % 0.2 %
[2017-06-03 16:25] LABS: Basophils % (auto) 1.4 % (0.0-2.0); Eosinophils % (auto) 2.9 % (0.0-7.0); Hematocrit 36.9 % (41.0-53.0); Hemoglobin 11.8 g/dL (13.5-17.5); Mean Corpuscular Hemoglobin 26.8 pg (28.0-32.0); Mean Corpuscular Volume 83.7 fL (80.0-100.0); Mean Platelet Volume 8.3 fL (6.9-10.8); Monocytes # (auto) 0.7 uL; Monocytes % (auto) 13.4 % (0.0-12.0); Neutrophils % (auto) 57.3 % (37.0-80.0); Platelet Count (auto) 271 10^3/uL (140-450); Red Cell Distribution Width 16.2 % (11.8-14.3); White Blood Cell 5.3 10^3/uL (4.4-10.8)
[2017-06-03] MEDS ORDERED: LABETALOL HCL 5 MG/ML ML 20ML VIAL IV ONE (16:30)
[2017-06-03 16:35] LABS: INR 1.34 (0.9-1.15); Partial Thromboplastin Time 31.7 sec (22.64-33.71); Prothrombin Time 14.6 sec (9.37-12.3)
[2017-06-03 16:48] LABS: Albumin 3.5 g/dL (3.4-5.0); Anion Gap 10 (5-15); Aspartate Aminotransferase 71 U/L (15-37); BUN/Creatinine Ratio 18.8; Blood Urea Nitrogen 19 mg/dL (7-18); Calcium 8.6 mg/dL (8.5-10.1); Carbon Dioxide 24 mmol/L (21-32); Chloride 102 mmol/L (98-107); GFR African American 95 mL/min; GFR Non-African American 79 mL/min; Glucose 86 mg/dL (74-106); Sodium 136 mmol/L (136-145)
[2017-06-03 16:52] LABS: Alkaline Phosphatase 48 U/L (45-117); Bilirubin, Total 0.9 mg/dL (0.2-1.0); Total Protein 8.1 g/dL (6.4-8.2)
[2017-06-03 17:00] LABS: Temperature: 21.3 C (20.0-25.0)
[2017-06-03] MEDS ORDERED: SPIRONOLACTONE 25 MG TAB PO ONE (20:00)
[2017-06-03] MEDS ORDERED: MORPHINE SULF INJ 2 MG/ML SYRINGE 1ML IV ONE (20:00)
[2017-06-03] MEDS ORDERED: FUROSEMIDE 20 MG/2 ML VIAL IV ONE (20:00)
[2017-06-03] MEDS ORDERED: ONDANSETRON HCL 4 MG/2 ML VIAL IV ONE (20:00)
[2017-06-03] MEDS ORDERED: NITROGLYCERIN 0.4 MG SL TAB SL PRN (21:00)
[2017-06-03] MEDS ORDERED: cloNIDine HCL 0.1 MG TAB PO PRN (21:00)
[2017-06-03] MEDS ORDERED: ONDANSETRON HCL 4 MG/2 ML VIAL IV PRN (21:00)
[2017-06-03] MEDS ORDERED: MORPHINE SULF INJ 2 MG/ML SYRINGE 1ML IV PRN (21:00)
[2017-06-03] MEDS ORDERED: ACETAMINOPHEN 325 MG TAB PO PRN (21:00)
[2017-06-03] MEDS ORDERED: DEXTROSE (50%) 50ML SYRG IV PRN (21:00)
[2017-06-03] MEDS ORDERED: TEMAZEPAM 15 MG CAP PO PRN (21:00)
[2017-06-03] MEDS ORDERED: ATORVASTATIN 20 MG TAB PO SCH (22:00)
[2017-06-03] MEDS: METOPROLOL TARTRATE 25 MG TAB PO SCH (22:00)
[2017-06-03 22:47] VITALS: BP 148/94
[2017-06-03] MEDS: hydrALAZINE HCL 25 MG TAB PO SCH (23:32)
[2017-06-03] MEDS: ACCU-CHEK COMFORT CURVE STRIP VI SCH (23:33)
[2017-06-03] MEDS: GABAPENTIN 300 MG CAP PO SCH (23:33)
[2017-06-03] MEDS: HYDROcodone-ACET 5/325MG TAB PO PRN (23:41)
[2017-06-03] MEDS: InsuLIN REG 1unit/0.01ml Soln (100units/ml) SC SCH (23:41)
[2017-06-04 05:00] VITALS: BP 127/83
[2017-06-04] MEDS: ACCU-CHEK COMFORT CURVE STRIP VI SCH ×3 (05:57→18:33)
[2017-06-04] MEDS: hydrALAZINE HCL 25 MG TAB PO SCH ×2 (05:57→14:00)
[2017-06-04] MEDS: InsuLIN REG 1unit/0.01ml Soln (100units/ml) SC SCH ×3 (05:58→18:33)
[2017-06-04] MEDS: HYDROcodone-ACET 5/325MG TAB PO PRN ×3 (06:07→18:31)
[2017-06-04 06:15] LABS: Basophils # (auto) 0.1 uL; Basophils % (auto) 1.3 % (0.0-2.0); Eosinophils # (auto) 0.2 uL; Eosinophils % (auto) 4.4 % (0.0-7.0); Hematocrit 35.6 % (41.0-53.0); Hemoglobin 11.6 g/dL (13.5-17.5); Lymphocytes # (auto) 1.7 uL; Lymphocytes % (auto) 30.8 % (10.0-50.0); Mean Corpuscular Hemoglobin 27.1 pg (28.0-32.0); Mean Corpuscular Hgb Conc. 32.5 g/dL (32.0-36.0); Mean Corpuscular Volume 83.4 fL (80.0-100.0); Mean Platelet Volume 8.4 fL (6.9-10.8); Monocytes # (auto) 0.8 uL; Monocytes % (auto) 15.4 % (0.0-12.0); Neutrophils # (auto) 2.6 uL; Neutrophils % (auto) 48.1 % (37.0-80.0); Nucleated Red Blood Cells % 0.3 %; Platelet Count (auto) 248 10^3/uL (140-450); Red Cell Distribution Width 16.3 % (11.8-14.3); White Blood Cell 5.4 10^3/uL (4.4-10.8)
[2017-06-04 06:26] LABS: Urine Bilirubin Negative (Negative); Urine Blood Negative /uL (Negative); Urine Color Yellow (Yellow); Urine Glucose Normal (Normal); Urine Ketone Negative (Negative); Urine Nitrite Negative (Negative); Urine RBC <1 /hpf (0 - 3); Urine Urobilinogen Normal (Negative)
[2017-06-04 06:43] LABS: Albumin 3.4 g/dL (3.4-5.0); Calcium 8.6 mg/dL (8.5-10.1); Potassium 3.5 mmol/L (3.5-5.1)
[2017-06-04 06:49] LABS: BUN/Creatinine Ratio 15.5; Bilirubin, Total 1.1 mg/dL (0.2-1.0)
[2017-06-04 09:00] VITALS: BP 163/94
[2017-06-04] MEDS ORDERED: FUROSEMIDE 20 MG TAB PO SCH (10:00)
[2017-06-04] MEDS ORDERED: CLOPIDOGREL BISULFATE 75 MG TAB PO SCH (10:00)
[2017-06-04] MEDS ORDERED: SPIRONOLACTONE 25 MG TAB PO SCH (10:00)
[2017-06-04] MEDS ORDERED: PANTOPRAZOLE 40 MG/10 ML VIAL IV SCH (10:00)
[2017-06-04] MEDS: METOPROLOL TARTRATE 25 MG TAB PO SCH (12:14)
[2017-06-04] MEDS: GABAPENTIN 300 MG CAP PO SCH (12:15)
[2017-06-04 12:46] VITALS: BP 145/90
[2017-06-04 16:56] VITALS: BP 159/95
[2017-06-04 18:54] VITALS: BP 138/85
== END 2017-06-04 19:30 | disposition home health service (06) | DRG 432 ==
LOC: ER 13:05 → TELE 13:06 → TELE-WESTW 22:47
PROVIDERS: ADMIT Nurse Practitioner; ATTEND Nurse Practitioner
DX: K70.31 Alcoholic cirrhosis of liver with ascites (principal); I50.41 Acute combined systolic (congestive) and diastolic (congestive) heart failure; J96.10 Chronic respiratory failure, unspecified whether with hypoxia or hypercapnia; E11.40 Type 2 diabetes mellitus with diabetic neuropathy, unspecified; I42.9 Cardiomyopathy, unspecified; J44.9 Chronic obstructive pulmonary disease, unspecified; I11.0 Hypertensive heart disease with heart failure; E11.9 Type 2 diabetes mellitus without complications; E78.5 Hyperlipidemia, unspecified; I25.10 Atherosclerotic heart disease of native coronary artery without angina pectoris; I70.0 Atherosclerosis of aorta; K21.9 Gastro-esophageal reflux disease without esophagitis; M19.90 Unspecified osteoarthritis, unspecified site; K52.9 Noninfective gastroenteritis and colitis, unspecified; Z82.3 Family history of stroke; Z83.3 Family history of diabetes mellitus; Z95.0 Presence of cardiac pacemaker; Z98.1 Arthrodesis status; Z80.0 Family history of malignant neoplasm of digestive organs; Z99.81 Dependence on supplemental oxygen
CPT/HCPCS: 36415; 71010; 74176; 80053; 81001; 82962; 83880; 84484; 85025; 85610; 85730; 87081; 93306; 96372; 96374; 96375; C9113; J1815; J2405; Q0162

== ENCOUNTER 2017-06-10 15:47 | Inpatient (IN) | payer OTHER ==
[~2017-06-10] VITALS: Ht 165.1 cm; Wt 97.5 kg
[2017-06-10] MEDS ORDERED: DEXTROSE 50% SYRINGE 50 ML IV ONE (16:24)
[2017-06-10] MEDS ORDERED: DEXTROSE (50%) 50ML SYRG IV ONE (16:45)
[2017-06-10 16:56] LABS: Allen Test Yes; Blood 02Sat 99.1 % (96-100); Blood COHb 0.3 % (0.5-1.5); Blood MetHb 0.2 % (0.0-1.5); HCO3 23.9 mmol/L (22-26.0); HHb 0.9 % (0.0-5.0); MODE MASK - SIMPLE; O2Hb 98.6 % (94.0-97.0); PCO2 45.5 mmHg (35.0-45.0); PCO2(T) 45.5 mmHg (35.0-45.0); PO2 212.9 mmHg (80.0-100.0); PO2(T) 212.9 mmHg (80.0-100.0); Sample Type Arterial; pH 7.339 (7.350-7.450)
[2017-06-10 17:18] LABS: Basophils # (auto) 0.1 uL; Eosinophils # (auto) 0.1 uL; Mean Corpuscular Hgb Conc. 31.2 g/dL (32.0-36.0); Nucleated Red Blood Cells % 0.1 %
[2017-06-10 17:20] LABS: Basophils % (auto) 1.3 % (0.0-2.0); Eosinophils % (auto) 1.3 % (0.0-7.0); Hematocrit 35.2 % (41.0-53.0); Lymphocytes # (auto) 0.5 uL; Mean Corpuscular Hemoglobin 26.1 pg (28.0-32.0); Mean Corpuscular Volume 83.5 fL (80.0-100.0); Mean Platelet Volume 8.4 fL (6.9-10.8); Monocytes # (auto) 0.7 uL; Monocytes % (auto) 12.5 % (0.0-12.0); Neutrophils % (auto) 74.9 % (37.0-80.0); Platelet Count (auto) 235 10^3/uL (140-450); Red Cell Distribution Width 16.7 % (11.8-14.3); White Blood Cell 5.3 10^3/uL (4.4-10.8)
[2017-06-10 17:39] LABS: Albumin 3.7 g/dL (3.4-5.0); Alkaline Phosphatase 49 U/L (45-117); Anion Gap 10 (5-15); Aspartate Aminotransferase 89 U/L (15-37); BUN/Creatinine Ratio 23.7; Bilirubin, Total 0.7 mg/dL (0.2-1.0); Blood Urea Nitrogen 31 mg/dL (7-18); Calcium 8.1 mg/dL (8.5-10.1); Carbon Dioxide 24 mmol/L (21-32); Chloride 102 mmol/L (98-107); GFR African American 71 mL/min; GFR Non-African American 58 mL/min; Glucose 151 mg/dL (74-106); INR 1.41 (0.9-1.15); Magnesium 2.1 mg/dL (1.6-2.6); Partial Thromboplastin Time 32.2 sec (22.64-33.71); Prothrombin Time 15.4 sec (9.37-12.3); Sodium 136 mmol/L (136-145); Total Protein 7.9 g/dL (6.4-8.2)
[2017-06-10 18:56] LABS: Temperature: 21.3 C (20.0-25.0)
[2017-06-10 19:34] LABS: Urine RBC None Seen /hpf (0 - 3)
[2017-06-10 20:05] VITALS: BP 126/96
[2017-06-10 20:17] LABS: Urine Bilirubin Negative (Negative); Urine Blood Negative /uL (Negative); Urine Color Yellow (Yellow); Urine Glucose 2+ mg/dL (Normal); Urine Ketone Negative (Negative); Urine Mucus FEW (None Seen); Urine Nitrite Negative (Negative); Urine Squamous Epithelial Cell FEW /hpf (<5); Urine Urobilinogen Normal (Negative)
[2017-06-10 20:19] LABS: Allen Test Yes; Base Excess -3.8 mmol/L (-2.0-2.0); Blood 02Sat 98.3 % (96-100); Blood COHb 0.2 % (0.5-1.5); Blood MetHb 0.1 % (0.0-1.5); HCO3 19.6 mmol/L (22-26.0); HHb 1.7 % (0.0-5.0); MODE MASK - BIPAP; PCO2 30.4 mmHg (35.0-45.0); PCO2(T) 30.4 mmHg (35.0-45.0); PO2 139.2 mmHg (80.0-100.0); PO2(T) 139.2 mmHg (80.0-100.0); Sample Type Arterial; pH 7.427 (7.350-7.450)
[2017-06-10] MEDS ORDERED: FUROSEMIDE 40 MG/4 ML VIAL IV ONE ×2 (21:45→23:15)
[2017-06-10 22:00] VITALS: BP 127/69
[2017-06-10] MEDS ORDERED: KETOROLAC TROMETH 30 MG/ML 1ML VIAL IV ONE (22:30)
[2017-06-10] MEDS ORDERED: MORPHINE SULF INJ 2 MG/ML SYRINGE 1ML IV PRN (23:15)
[2017-06-10] MEDS ORDERED: DEXTROSE (50%) 50ML SYRG IV PRN (23:15)
[2017-06-10] MEDS ORDERED: NITROGLYCERIN 0.4 MG SL TAB SL PRN (23:15)
[2017-06-11] VITALS (7 sets, daily range): BP systolic 108–127; BP diastolic 73–93
[2017-06-11] MEDS ORDERED: POTASSIUM CHL 20 Meq TABLET PO ONE ×3 (00:12→10:00)
[2017-06-11] MEDS ORDERED: FUROSEMIDE 20 MG/2 ML VIAL ONE (00:13)
[2017-06-11] MEDS ORDERED: FUROSEMIDE 20 MG/2 ML VIAL IV ONE (00:15)
[2017-06-11] MEDS ORDERED: MORPHINE SULF INJ 2 MG/ML SYRINGE 1ML IV ONE (02:15)
[2017-06-11] MEDS: ACCU-CHEK COMFORT CURVE STRIP VI SCH ×4 (03:30→13:00)
[2017-06-11] MEDS: GABAPENTIN 300 MG CAP PO SCH ×2 (05:45→13:58)
[2017-06-11] MEDS ORDERED: HYDROcodone-ACET 5/325MG TAB PO PRN (06:30)
[2017-06-11 06:33] LABS: Basophils % (auto) 0.9 % (0.0-2.0); Eosinophils # (auto) 0.2 uL; Hematocrit 35.3 % (41.0-53.0); Lymphocytes # (auto) 0.9 uL; Mean Corpuscular Volume 82.2 fL (80.0-100.0); Mean Platelet Volume 8.5 fL (6.9-10.8); White Blood Cell 5.7 10^3/uL (4.4-10.8)
[2017-06-11 06:35] LABS: Basophils # (auto) 0.1 uL; Hemoglobin 11.3 g/dL (13.5-17.5); Lymphocytes % (auto) 15.7 % (10.0-50.0); Mean Corpuscular Hemoglobin 26.4 pg (28.0-32.0); Mean Corpuscular Hgb Conc. 32.1 g/dL (32.0-36.0); Monocytes # (auto) 0.8 uL; Monocytes % (auto) 13.7 % (0.0-12.0); Neutrophils # (auto) 3.8 uL; Neutrophils % (auto) 66.7 % (37.0-80.0); Nucleated Red Blood Cells % 0.1 %; Platelet Count (auto) 237 10^3/uL (140-450); Red Cell Distribution Width 16.4 % (11.8-14.3)
[2017-06-11 06:55] LABS: Albumin 3.6 g/dL (3.4-5.0); BUN/Creatinine Ratio 19.5; Calcium 8.3 mg/dL (8.5-10.1); Potassium 4.1 mmol/L (3.5-5.1)
[2017-06-11] MEDS ORDERED: ACCU-CHEK COMFORT CURVE STRIP VI SCH (07:00)
[2017-06-11] MEDS ORDERED: PANTOPRAZOLE 40 MG TAB PO SCH (10:00)
[2017-06-11] MEDS ORDERED: FUROSEMIDE 40 MG/4 ML VIAL IV ONE (10:00)
[2017-06-11] MEDS ORDERED: METOPROLOL TARTRATE 25 MG TAB PO SCH (10:00)
[2017-06-11] MEDS ORDERED: FUROSEMIDE 40 MG TAB PO SCH (11:30)
[2017-06-11] MEDS ORDERED: ATORVASTATIN 20 MG TAB PO SCH (22:00)
== END 2017-06-11 15:15 | disposition home health service (06) | DRG 637 ==
LOC: EDBD 15:47 → ER 15:49 → TELE 15:50 → TELE-EAST 06-11 00:30
PROVIDERS: ADMIT Nurse Practitioner Family; ATTEND Nurse Practitioner Family
PROC: 5A09357 Assistance with Respiratory Ventilation, Less than 24 Consecutive Hours, Continuous Positive Airway Pressure (ICD-10-PCS; principal; 2017-06-10)
DX: E11.649 Type 2 diabetes mellitus with hypoglycemia without coma (principal); G93.41 Metabolic encephalopathy; N17.0 Acute kidney failure with tubular necrosis; J96.00 Acute respiratory failure, unspecified whether with hypoxia or hypercapnia; I50.43 Acute on chronic combined systolic (congestive) and diastolic (congestive) heart failure; I13.0 Hypertensive heart and chronic kidney disease with heart failure and stage 1 through stage 4 chronic kidney disease, or unspecified chronic kidney disease; E11.22 Type 2 diabetes mellitus with diabetic chronic kidney disease; F41.9 Anxiety disorder, unspecified; I25.10 Atherosclerotic heart disease of native coronary artery without angina pectoris; E66.9 Obesity, unspecified; D64.9 Anemia, unspecified; F10.10 Alcohol abuse, uncomplicated; M19.90 Unspecified osteoarthritis, unspecified site; K74.60 Unspecified cirrhosis of liver; R55 Syncope and collapse; J44.9 Chronic obstructive pulmonary disease, unspecified; N18.3 Chronic kidney disease, stage 3 (moderate); Z79.4 Long term (current) use of insulin; Z79.82 Long term (current) use of aspirin; Z68.35 Body mass index [BMI] 35.0-35.9, adult; Z79.899 Other long term (current) drug therapy; Z83.3 Family history of diabetes mellitus; Z80.0 Family history of malignant neoplasm of digestive organs
CPT/HCPCS: 36415; 36600; 70450; 71010; 80053; 80307; 80320; 81001; 82140; 82805; 82962; 83605; 83735; 83880; 84484; 85025; 85610; 85730; 87040; 87081; 93005; 94660; 96374; 96375; 99291; J1885

== ENCOUNTER 2017-07-03 19:05 | Inpatient (IN) | payer OTHER ==
[~2017-07-03] VITALS: Ht 170.2 cm; Wt 86.6 kg
[~2017-07-03 19:05] MED LIST changes: -ACET-1156 PO; -GABA-497 PO; +GABA300C10 PO; -INSLANTI SC
[2017-07-03] MEDS ORDERED: ALBUTEROL SULF 2.5 MG/0.5ML(0.5%) NEB SOLN NEB ONE (19:45)
[2017-07-03] MEDS ORDERED: IPRATROPIUM BROM 0.5 MG/2.5ML INH SOL NEB ONE (19:45)
[2017-07-03] MEDS ORDERED: LORazepam 2MG/ML-1ML VIAL ONE (20:06)
[2017-07-03] MEDS ORDERED: LORazepam 2MG/ML-1ML VIAL IV ONE (20:15)
[2017-07-03] MEDS ORDERED: HYDROcodone-ACET 10/325MG TAB PO ONE (20:15)
[2017-07-03] MEDS ORDERED: ACETAMINOPHEN 325 MG TAB PO ONE (20:30)
[2017-07-03] MEDS ORDERED: ACETAMINOPHEN 650 mg PER 20 mL UD PO ONE (20:30)
[2017-07-03 21:23] LABS: Basophils # (auto) 0.1 uL; Eosinophils # (auto) 0.1 uL; Eosinophils % (auto) 1.1 % (0.0-7.0); Lymphocytes # (auto) 1.9 uL; Mean Corpuscular Hemoglobin 24.8 pg (28.0-32.0); Red Cell Distribution Width 17.9 % (11.8-14.3); White Blood Cell 12.3 10^3/uL (4.4-10.8)
[2017-07-03 21:32] LABS: Basophils % (auto) 1.1 % (0.0-2.0); Hematocrit 35.3 % (41.0-53.0); Lymphocytes % (auto) 15.7 % (10.0-50.0); Mean Corpuscular Hgb Conc. 31.1 g/dL (32.0-36.0); Mean Corpuscular Volume 79.9 fL (80.0-100.0); Monocytes # (auto) 1.6 uL; Monocytes % (auto) 12.8 % (0.0-12.0); Neutrophils # (auto) 8.6 uL; Neutrophils % (auto) 69.3 % (37.0-80.0); Nucleated Red Blood Cells % 0.2 %; Platelet Count (auto) 316 10^3/uL (140-450); Red Blood Cells 4.42 10^6/uL (4.5-5.90)
[2017-07-03 21:42] LABS: Albumin 4.2 g/dL (3.4-5.0); BUN/Creatinine Ratio 24.6; Bilirubin, Total 1.1 mg/dL (0.2-1.0); Calcium 8.7 mg/dL (8.5-10.1); Magnesium 2.1 mg/dL (1.6-2.6); Potassium 4.3 mmol/L (3.5-5.1); Total Protein 9.4 g/dL (6.4-8.2)
[2017-07-03 21:58] LABS: INR 1.19 (0.9-1.15)
[2017-07-03] MEDS: PROPOFOL 100 ML IV SCH (22:05)
[2017-07-03] MEDS ORDERED: MIDAZOLAM DRIP 50 mg/50mL 50 ML IV ONE ×2 (22:06→23:47)
[2017-07-03 22:51] LABS: Urine Bacteria NONE SEEN /hpf (None Seen); Urine Blood Negative /uL (Negative); Urine Mucus FEW (None Seen); Urine Specific Gravity 1.023 (1.001-1.035); Urine Sperm PRESENT /hpf (None Seen); Urine WBC 9 /hpf (0 - 3)
[2017-07-03] MEDS ORDERED: NOREPINEPHRINE 8 MG/250ML KIT 250 ML IV ONE (22:52)
[2017-07-03] MEDS ORDERED: SODIUM CHLORIDE 0.9% 1,000 ML IV ONE (23:00)
[2017-07-03] MEDS ORDERED: ACETAMINOPHEN 650 MG RECT SUPP PR ONE (23:00)
[2017-07-03] MEDS: NOREPINEPHRINE 8 MG/250ML KIT 250 ML IV SCH (23:00)
[2017-07-04] VITALS (12 sets, daily range): BP systolic 91–137; BP diastolic 62–82
[2017-07-04] MEDS: MIDAZOLAM DRIP 50 mg/50mL 50 ML IV SCH ×5 (00:30→23:40)
[2017-07-04] MEDS ORDERED: MORPHINE SULF INJ 2 MG/ML SYRINGE 1ML IV PRN (02:15)
[2017-07-04] MEDS ORDERED: LACTULOSE 20Gm/30ML SOLN PO ONE (02:15)
[2017-07-04] MEDS ORDERED: ONDANSETRON HCL 4 MG/2 ML VIAL IV PRN (02:15)
[2017-07-04] MEDS ORDERED: ACETAMINOPHEN 500 MG TAB PO PRN ×2 (02:15→17:45)
[2017-07-04] MEDS ORDERED: VANCOMYCIN PER PHARMACY 0 MG IV SCH (02:15)
[2017-07-04] MEDS ORDERED: FUROSEMIDE 40 MG/4 ML VIAL IV ONE (02:15)
[2017-07-04] MEDS ORDERED: VANCOMYCIN 1GM/250ML 250 ML IV SCH (02:30)
[2017-07-04] MEDS ORDERED: IBUPROFEN 100MG/5ML ORAL SUSP 100 MG/5 ML UD GT PRN ×2 (03:15→04:00)
[2017-07-04 05:00] LABS: Albumin 3.8 g/dL (3.4-5.0); BUN/Creatinine Ratio 18.7; Bilirubin, Total 1.4 mg/dL (0.2-1.0); Calcium 8.4 mg/dL (8.5-10.1); Potassium 3.5 mmol/L (3.5-5.1); Total Protein 7.9 g/dL (6.4-8.2)
[2017-07-04] MEDS: PIPERACILLIN-TAZOB 3.375GM 50 ML IV SCH ×4 (06:14→23:30)
[2017-07-04 06:21] LABS: Eosinophils # (auto) 0 uL; Lymphocytes # (auto) 1.5 uL; White Blood Cell 21.6 10^3/uL (4.4-10.8)
[2017-07-04 06:23] LABS: Basophils # (auto) 0.1 uL; Basophils % (auto) 0.4 % (0.0-2.0); Hemoglobin 11.3 g/dL (13.5-17.5); Mean Corpuscular Hemoglobin 24.6 pg (28.0-32.0); Mean Corpuscular Hgb Conc. 31.4 g/dL (32.0-36.0); Mean Corpuscular Volume 78.3 fL (80.0-100.0); Monocytes # (auto) 1.6 uL; Monocytes % (auto) 7.6 % (0.0-12.0); Neutrophils # (auto) 18.3 uL; Platelet Count (auto) 275 10^3/uL (140-450); Red Cell Distribution Width 17.5 % (11.8-14.3)
[2017-07-04] MEDS: PANTOPRAZOLE 40 MG/10 ML VIAL IV SCH (09:44)
[2017-07-04] MEDS ORDERED: ENOXAPARIN SOD 30 MG/0.3 ML SYRINGE SC SCH (10:00)
[2017-07-04] MEDS ORDERED: VANCOMYCIN 1GM/250ML 250 ML IV ONE (10:15)
[2017-07-04] MEDS: LACTULOSE 20Gm/30ML SOLN GT SCH ×3 (13:29→23:30)
[2017-07-04 13:34] LABS: Urine Bacteria FEW /hpf (None Seen); Urine Blood 3+ /uL (Negative); Urine Mucus FEW (None Seen); Urine Specific Gravity 1.023 (1.001-1.035); Urine WBC 32 /hpf (0 - 3)
[2017-07-04 13:45] LABS: Protein, Urine 635.2 mg/dL (0.0-11.9)
[2017-07-04 14:48] LABS: INR 1.43 (0.9-1.15); Partial Thromboplastin Time 36.8 sec (22.64-33.71); Prothrombin Time 15.6 sec (9.37-12.3)
[2017-07-04] MEDS ORDERED: HEPARIN DRIP/D5W 100UNITS/ML 250 ML IV SCH ×2 (14:49→17:00)
[2017-07-04 15:33] LABS: BUN/Creatinine Ratio 16.4; Bilirubin, Direct 0.7 mg/dL (0-0.2); Bilirubin, Total 1.5 mg/dL (0.2-1.0); Potassium 3.6 mmol/L (3.5-5.1); Total Protein 7.7 g/dL (6.4-8.2)
[2017-07-04] MEDS: NOREPINEPHRINE 8 MG/250ML KIT 250 ML IV SCH (16:03)
[2017-07-04] MEDS: PROPOFOL 100 ML IV SCH (17:13)
[2017-07-04] MEDS ORDERED: ACETAMINOPHEN 650 MG RECT SUPP PR ONE (17:34)
[2017-07-04 17:58] LABS: Eosinophils # (auto) 0 uL; Hemoglobin 11.3 g/dL (13.5-17.5); Platelet Count (auto) 278 10^3/uL (140-450)
[2017-07-04 18:00] LABS: Basophils # (auto) 0.1 uL; Basophils % (auto) 0.7 % (0.0-2.0); Eosinophils % (auto) 0.1 % (0.0-7.0); Hematocrit 37.4 % (41.0-53.0); Lymphocytes # (auto) 1.3 uL; Lymphocytes % (auto) 7.3 % (10.0-50.0); Mean Corpuscular Hemoglobin 24.4 pg (28.0-32.0); Mean Corpuscular Hgb Conc. 30.3 g/dL (32.0-36.0); Mean Corpuscular Volume 80.8 fL (80.0-100.0); Monocytes # (auto) 1.3 uL; Monocytes % (auto) 7.5 % (0.0-12.0); Neutrophils # (auto) 14.6 uL; Neutrophils % (auto) 84.4 % (37.0-80.0); Red Blood Cells 4.63 10^6/uL (4.5-5.90); Red Cell Distribution Width 17.9 % (11.8-14.3); White Blood Cell 17.3 10^3/uL (4.4-10.8)
[2017-07-04 18:12] LABS: INR 1.47 (0.9-1.15); Partial Thromboplastin Time 36.9 sec (22.64-33.71); Prothrombin Time 16.1 sec (9.37-12.3)
[2017-07-04] MEDS: ACETAMINOPHEN 650 MG RECT SUPP PR PRN (18:15)
[2017-07-04] MEDS ORDERED: DEXTROSE (50%) 50ML SYRG IV ONE (19:46)
[2017-07-04] MEDS ORDERED: SODIUM BICARBONATE 8.4% INJ 50ML SYRINGE IV ONE (19:46)
[2017-07-04] MEDS ORDERED: EPINEPHrine HCL 1 MG/10 ML SYRG IV ONE (19:46)
[2017-07-05] VITALS (56 sets, daily range): BP systolic 80–137; BP diastolic 61–90
[2017-07-05 00:47] LABS: INR 1.49 (0.9-1.15); Partial Thromboplastin Time 37.5 sec (22.64-33.71); Prothrombin Time 16.3 sec (9.37-12.3)
[2017-07-05 01:12] LABS: Basophils # (auto) 0.1 uL; Eosinophils # (auto) 0 uL; Monocytes % (auto) 6.9 % (0.0-12.0)
[2017-07-05 01:13] LABS: Basophils % (auto) 0.4 % (0.0-2.0); Hematocrit 36.9 % (41.0-53.0); Hemoglobin 11.6 g/dL (13.5-17.5); Lymphocytes # (auto) 0.9 uL; Mean Corpuscular Hemoglobin 24.9 pg (28.0-32.0); Mean Corpuscular Hgb Conc. 31.5 g/dL (32.0-36.0); Neutrophils # (auto) 12.5 uL; Neutrophils % (auto) 86.7 % (37.0-80.0); Platelet Count (auto) 268 10^3/uL (140-450); Red Blood Cells 4.67 10^6/uL (4.5-5.90); Red Cell Distribution Width 17.9 % (11.8-14.3); White Blood Cell 14.4 10^3/uL (4.4-10.8)
[2017-07-05] MEDS: PROPOFOL 100 ML IV SCH ×4 (01:50→21:02)
[2017-07-05] MEDS: NOREPINEPHRINE 8 MG/250ML KIT 250 ML IV SCH ×2 (01:51→22:05)
[2017-07-05] MEDS ORDERED: VANCOMYCIN 1,250 MG in D5W 5% 250 ML IV SCH (04:00)
[2017-07-05 04:32] LABS: Basophils # (auto) 0.1 uL; Basophils % (auto) 0.5 % (0.0-2.0); Eosinophils # (auto) 0 uL; Eosinophils % (auto) 0.1 % (0.0-7.0); Hematocrit 37.5 % (41.0-53.0); Hemoglobin 11.9 g/dL (13.5-17.5); Lymphocytes # (auto) 0.9 uL; Lymphocytes % (auto) 6.3 % (10.0-50.0); Mean Corpuscular Hemoglobin 24.8 pg (28.0-32.0); Mean Corpuscular Hgb Conc. 31.6 g/dL (32.0-36.0); Mean Corpuscular Volume 78.3 fL (80.0-100.0); Monocytes # (auto) 0.9 uL; Monocytes % (auto) 6.4 % (0.0-12.0); Neutrophils # (auto) 12.4 uL; Neutrophils % (auto) 86.7 % (37.0-80.0); Nucleated Red Blood Cells % 0.1 %; Platelet Count (auto) 277 10^3/uL (140-450); Red Blood Cells 4.79 10^6/uL (4.5-5.90); Red Cell Distribution Width 17.7 % (11.8-14.3); White Blood Cell 14.3 10^3/uL (4.4-10.8)
[2017-07-05 04:39] LABS: INR 1.4 (0.9-1.15); Partial Thromboplastin Time 36.6 sec (22.64-33.71); Prothrombin Time 15.3 sec (9.37-12.3)
[2017-07-05 04:43] LABS: Albumin 2.6 g/dL (3.4-5.0); Calcium 8.1 mg/dL (8.5-10.1); Potassium 3.3 mmol/L (3.5-5.1)
[2017-07-05 04:46] LABS: BUN/Creatinine Ratio 18.1; Magnesium 2.1 mg/dL (1.6-2.6)
[2017-07-05] MEDS: PIPERACILLIN-TAZOB 3.375GM 50 ML IV SCH ×3 (06:20→18:00)
[2017-07-05] MEDS: LACTULOSE 20Gm/30ML SOLN GT SCH ×2 (06:26→17:47)
[2017-07-05 06:34] LABS: Bilirubin, Total 1.5 mg/dL (0.2-1.0); Total Protein 7.2 g/dL (6.4-8.2)
[2017-07-05 07:08] LABS: Bilirubin, Direct 0.9 mg/dL (0-0.2)
[2017-07-05] MEDS: MIDAZOLAM DRIP 50 mg/50mL 50 ML IV SCH ×3 (08:14→21:03)
[2017-07-05] MEDS ORDERED: ENOXAPARIN SOD 100 MG/1 ML SYRINGE SC SCH (10:00)
[2017-07-05] MEDS ORDERED: ENOXAPARIN SOD 40 MG/0.4 ML SYRINGE SC SCH (10:00)
[2017-07-05] MEDS: VANCOMYCIN 1GM/250ML 250 ML IV SCH (10:12)
[2017-07-05] MEDS: PANTOPRAZOLE 40 MG/10 ML VIAL IV SCH (10:12)
[2017-07-05] MEDS: FUROSEMIDE 40 MG/4 ML VIAL IV SCH (10:14)
[2017-07-05] MEDS ORDERED: POTASSIUM CHL 10% (20 MEQ/15ML) 15ml ORAL SOLN GT ONE (11:15)
[2017-07-05 15:08] LABS: INR 1.27 (0.9-1.15); Partial Thromboplastin Time 65.4 sec (22.64-33.71); Prothrombin Time 13.9 sec (9.37-12.3)
[2017-07-05] MEDS: ACETAMINOPHEN 650 mg PER 20 mL UD NG PRN (17:47)
[2017-07-05 18:14] LABS: Basophils # (auto) 0.1 uL; Eosinophils # (auto) 0 uL; Eosinophils % (auto) 0.1 % (0.0-7.0); Neutrophils # (auto) 10.3 uL; Nucleated Red Blood Cells % 0.4 %; Platelet Count (auto) 290 10^3/uL (140-450)
[2017-07-05 18:16] LABS: Basophils % (auto) 1.1 % (0.0-2.0); Hematocrit 40.8 % (41.0-53.0); Lymphocytes # (auto) 0.9 uL; Mean Corpuscular Hemoglobin 24.7 pg (28.0-32.0); Mean Corpuscular Hgb Conc. 31.7 g/dL (32.0-36.0); Monocytes % (auto) 8.4 % (0.0-12.0); Neutrophils % (auto) 83.4 % (37.0-80.0); Red Blood Cells 5.24 10^6/uL (4.5-5.90); Red Cell Distribution Width 18.2 % (11.8-14.3); White Blood Cell 12.3 10^3/uL (4.4-10.8)
[2017-07-05 18:38] LABS: Albumin 2.7 g/dL (3.4-5.0); BUN/Creatinine Ratio 18.3; Bilirubin, Total 1.6 mg/dL (0.2-1.0); Calcium 8.2 mg/dL (8.5-10.1); Magnesium 2.1 mg/dL (1.6-2.6); Potassium 3.5 mmol/L (3.5-5.1); Total Protein 7.8 g/dL (6.4-8.2)
[2017-07-06] VITALS (104 sets, daily range): BP systolic 80–172; BP diastolic 46–95
[2017-07-06] MEDS: PIPERACILLIN-TAZOB 3.375GM 50 ML IV SCH ×2 (00:15→07:29)
[2017-07-06] MEDS: LACTULOSE 20Gm/30ML SOLN GT SCH ×4 (00:15→18:00)
[2017-07-06] MEDS: PROPOFOL 100 ML IV SCH (01:30)
[2017-07-06] MEDS: MIDAZOLAM DRIP 50 mg/50mL 50 ML IV SCH ×2 (02:40→20:11)
[2017-07-06 04:53] LABS: Basophils # (auto) 0 uL; Eosinophils # (auto) 0 uL; Hemoglobin 13.2 g/dL (13.5-17.5); Lymphocytes # (auto) 0.7 uL; Monocytes # (auto) 1.1 uL; Nucleated Red Blood Cells % 0.1 %
[2017-07-06 04:55] LABS: Basophils % (auto) 0.3 % (0.0-2.0); Eosinophils % (auto) 0.2 % (0.0-7.0); Hematocrit 41.4 % (41.0-53.0); Lymphocytes % (auto) 6.8 % (10.0-50.0); Mean Corpuscular Hemoglobin 24.9 pg (28.0-32.0); Mean Corpuscular Hgb Conc. 31.8 g/dL (32.0-36.0); Mean Corpuscular Volume 78.2 fL (80.0-100.0); Monocytes % (auto) 9.7 % (0.0-12.0); Neutrophils # (auto) 9.1 uL; Platelet Count (auto) 287 10^3/uL (140-450); Red Cell Distribution Width 17.9 % (11.8-14.3); White Blood Cell 10.9 10^3/uL (4.4-10.8)
[2017-07-06 05:08] LABS: INR 1.15 (0.9-1.15); Partial Thromboplastin Time 33.1 sec (22.64-33.71); Prothrombin Time 12.5 sec (9.37-12.3)
[2017-07-06 05:34] LABS: Albumin 2.4 g/dL (3.4-5.0); BUN/Creatinine Ratio 17.7; Bilirubin, Direct 1.3 mg/dL (0-0.2); Bilirubin, Total 1.8 mg/dL (0.2-1.0); Calcium 8.2 mg/dL (8.5-10.1); Magnesium 1.8 mg/dL (1.6-2.6); Potassium 3.2 mmol/L (3.5-5.1); Total Protein 7.4 g/dL (6.4-8.2)
[2017-07-06] MEDS ORDERED: MAGNESIUM SULFATE 1GM/100ML 100 ML IV ONE (08:00)
[2017-07-06] MEDS: VANCOMYCIN 1GM/250ML 250 ML IV SCH (10:32)
[2017-07-06] MEDS: POTASSIUM CHL 20MEQ/50ML 50 ML IV SCH ×3 (10:33→18:00)
[2017-07-06] MEDS: PANTOPRAZOLE 40 MG/10 ML VIAL IV SCH (10:33)
[2017-07-06] MEDS: FUROSEMIDE 40 MG/4 ML VIAL IV SCH (10:33)
[2017-07-06] MEDS: ERTAPENEM SOD INJ 1 GM in SODIUM CHL 0.9% 100 ML IV SCH (12:05)
[2017-07-06] MEDS: ACETAMINOPHEN 650 MG RECT SUPP PR PRN (12:22)
[2017-07-06] MEDS: ACCU-CHEK COMFORT CURVE STRIP VI SCH (17:43)
[2017-07-06] MEDS: InsuLIN REG 1unit/0.01ml Soln (100units/ml) SC SCH (17:44)
[2017-07-06] MEDS ORDERED: DEXTROSE (50%) 50ML SYRG IV PRN (17:45)
[2017-07-06] MEDS ORDERED: MORPHINE SULFATE 4 MG/ML SYR/VIAL IV PRN (17:45)
[2017-07-06] MEDS ORDERED: POTASSIUM CHL 20MEQ/50ML 50 ML IV ONE (19:08)
[2017-07-06 19:38] LABS: Hematocrit 40.2 % (41.0-53.0); Hemoglobin 12.7 g/dL (13.5-17.5); Mean Corpuscular Hemoglobin 24.6 pg (28.0-32.0); Mean Corpuscular Hgb Conc. 31.6 g/dL (32.0-36.0); Mean Corpuscular Volume 77.8 fL (80.0-100.0); Platelet Count (auto) 288 10^3/uL (140-450); Red Blood Cells 5.17 10^6/uL (4.5-5.90); Red Cell Distribution Width 18.2 % (11.8-14.3); White Blood Cell 8.5 10^3/uL (4.4-10.8)
[2017-07-06 19:44] LABS: Band Neutrophils % (manual) 0; Basophils % (manual) 0 (0.0-2.0); Blast Cells 0; Eosinophils % (manual) 0 (0-7); INR 1.15 (0.9-1.15); Metamyelocytes % 0; Myelocytes % 0; Partial Thromboplastin Time 32.8 sec (22.64-33.71); Promyelocytes % 0; Prothrombin Time 12.5 sec (9.37-12.3); Reactive Lymphocytes 0
[2017-07-06 19:53] LABS: BUN/Creatinine Ratio 16.2; Calcium 8.3 mg/dL (8.5-10.1); Potassium 3.4 mmol/L (3.5-5.1)
[2017-07-06 19:54] LABS: Albumin 2.2 g/dL (3.4-5.0); Bilirubin, Total 1.4 mg/dL (0.2-1.0); Total Protein 7.1 g/dL (6.4-8.2)
[2017-07-06 20:52] LABS: Lymphocytes % (manual) 7 (10.0-50.0)
[2017-07-06 20:53] LABS: Monocytes % (manual) 13 (0-12)
[2017-07-06] MEDS: NutriHep 250 mL Bottle PO SCH (22:30)
[2017-07-06] MEDS: NOREPINEPHRINE 8 MG/250ML KIT 250 ML IV SCH (23:00)
[2017-07-07] VITALS (108 sets, daily range): BP systolic 95–146; BP diastolic 50–84
[2017-07-07] MEDS: LACTULOSE 20Gm/30ML SOLN GT SCH ×4 (00:32→17:43)
[2017-07-07] MEDS: InsuLIN REG 1unit/0.01ml Soln (100units/ml) SC SCH ×4 (00:44→17:43)
[2017-07-07 04:32] LABS: Basophils # (auto) 0 uL; Eosinophils # (auto) 0 uL; Lymphocytes # (auto) 0.5 uL; Mean Corpuscular Hemoglobin 24.4 pg (28.0-32.0); Neutrophils # (auto) 6.2 uL; Nucleated Red Blood Cells % 0.1 %; Red Blood Cells 4.91 10^6/uL (4.5-5.90); White Blood Cell 7.5 10^3/uL (4.4-10.8)
[2017-07-07 04:35] LABS: Basophils % (auto) 0.3 % (0.0-2.0); Eosinophils % (auto) 0.5 % (0.0-7.0); Hematocrit 38.2 % (41.0-53.0); Lymphocytes % (auto) 7.1 % (10.0-50.0); Mean Corpuscular Hgb Conc. 31.4 g/dL (32.0-36.0); Mean Corpuscular Volume 77.9 fL (80.0-100.0); Monocytes # (auto) 0.7 uL; Monocytes % (auto) 9.8 % (0.0-12.0); Neutrophils % (auto) 82.3 % (37.0-80.0); Platelet Count (auto) 248 10^3/uL (140-450)
[2017-07-07 04:44] LABS: INR 1.06 (0.9-1.15); Prothrombin Time 11.6 sec (9.37-12.3)
[2017-07-07 05:11] LABS: Albumin 2.1 g/dL (3.4-5.0); BUN/Creatinine Ratio 18.9; Bilirubin, Direct 0.8 mg/dL (0-0.2); Bilirubin, Total 1.3 mg/dL (0.2-1.0); Calcium 8.1 mg/dL (8.5-10.1); Magnesium 2.1 mg/dL (1.6-2.6); Potassium 3.4 mmol/L (3.5-5.1); Total Protein 6.8 g/dL (6.4-8.2)
[2017-07-07] MEDS: MIDAZOLAM DRIP 50 mg/50mL 50 ML IV SCH ×3 (06:15→15:47)
[2017-07-07] MEDS: ACCU-CHEK COMFORT CURVE STRIP VI SCH ×4 (06:26→17:43)
[2017-07-07] MEDS: NutriHep 250 mL Bottle PO SCH ×3 (08:00→17:43)
[2017-07-07] MEDS: PANTOPRAZOLE 40 MG/10 ML VIAL IV SCH (09:43)
[2017-07-07] MEDS: FUROSEMIDE 40 MG/4 ML VIAL IV SCH (09:43)
[2017-07-07] MEDS: ERTAPENEM SOD INJ 1 GM in SODIUM CHL 0.9% 100 ML IV SCH (09:43)
[2017-07-07] MEDS ORDERED: VANCOMYCIN 1,500 MG in D5W 5% 250 ML IV SCH (11:00)
[2017-07-07] MEDS ORDERED: POTASSIUM CHL 20MEQ/50ML 50 ML IV ONE (14:00)
[2017-07-07] MEDS ORDERED: DEXTROSE (50%) 50ML SYRG IV PRN (14:30)
[2017-07-07] MEDS: PROPOFOL 100 ML IV SCH (22:05)
[2017-07-07] MEDS: NOREPINEPHRINE 8 MG/250ML KIT 250 ML IV SCH (22:23)
[2017-07-07] MEDS: INSULIN DETEMIR(LEVEMIR) 1unit/0.01ml Soln (100units/ml) SC SCH (22:24)
[2017-07-08] VITALS (73 sets, daily range): BP systolic 105–160; BP diastolic 47–87
[2017-07-08] MEDS: LACTULOSE 20Gm/30ML SOLN GT SCH ×4 (00:07→18:00)
[2017-07-08] MEDS: InsuLIN REG 1unit/0.01ml Soln (100units/ml) SC SCH ×4 (00:08→18:00)
[2017-07-08] MEDS: ACCU-CHEK COMFORT CURVE STRIP VI SCH ×4 (00:08→18:03)
[2017-07-08 05:56] LABS: Potassium 3.3 mmol/L (3.5-5.1)
[2017-07-08 06:01] LABS: Albumin 2.1 g/dL (3.4-5.0); BUN/Creatinine Ratio 23.6; Bilirubin, Total 0.9 mg/dL (0.2-1.0); Calcium 8.4 mg/dL (8.5-10.1); Total Protein 7.1 g/dL (6.4-8.2)
[2017-07-08] MEDS ORDERED: POTASSIUM CHL 20MEQ/50ML 50 ML IV ONE ×2 (06:43→06:45)
[2017-07-08] MEDS: NutriHep 250 mL Bottle PO SCH ×3 (08:00→18:02)
[2017-07-08] MEDS: MIDAZOLAM DRIP 50 mg/50mL 50 ML IV SCH (10:00)
[2017-07-08] MEDS: FUROSEMIDE 40 MG/4 ML VIAL IV SCH (11:00)
[2017-07-08] MEDS: ERTAPENEM SOD INJ 1 GM in SODIUM CHL 0.9% 100 ML IV SCH (11:00)
[2017-07-08] MEDS: PANTOPRAZOLE 40 MG/10 ML VIAL IV SCH (11:00)
[2017-07-08 11:13] LABS: BUN/Creatinine Ratio 23.4; Calcium 8.5 mg/dL (8.5-10.1); Hematocrit 40.8 % (41.0-53.0); Hemoglobin 12.1 g/dL (13.5-17.5); Mean Corpuscular Hemoglobin 24.2 pg (28.0-32.0); Mean Corpuscular Hgb Conc. 29.6 g/dL (32.0-36.0); Mean Corpuscular Volume 81.8 fL (80.0-100.0); Platelet Count (auto) 246 10^3/uL (140-450); Potassium 3.3 mmol/L (3.5-5.1); Red Blood Cells 4.99 10^6/uL (4.5-5.90); Red Cell Distribution Width 18.8 % (11.8-14.3); White Blood Cell 8.6 10^3/uL (4.4-10.8)
[2017-07-08] MEDS ORDERED: VANCOMYCIN 1,500 MG in D5W 5% 250 ML IV SCH (11:15)
[2017-07-08 11:21] LABS: Basophils % (manual) 0 (0.0-2.0); Blast Cells 0; Metamyelocytes % 0; Myelocytes % 0; Promyelocytes % 0; Reactive Lymphocytes 0
[2017-07-08] MEDS: INSULIN DETEMIR(LEVEMIR) 1unit/0.01ml Soln (100units/ml) SC SCH ×2 (11:30→22:00)
[2017-07-08 11:52] LABS: Band Neutrophils % (manual) 1; Eosinophils % (manual) 1 (0-7); Lymphocytes % (manual) 5 (10.0-50.0); Monocytes % (manual) 1 (0-12)
[2017-07-08] MEDS ORDERED: VANCOMYCIN 1,250 MG in D5W 5% 250 ML IV SCH (12:00)
[2017-07-08] MEDS: VANCOMYCIN 1,250 MG in D5W 5% 250 ML IV SCH (16:00)
[2017-07-08] MEDS: FREE WATER GT SCH (22:00)
[2017-07-08] MEDS: PROPOFOL 100 ML IV SCH (22:05)
[2017-07-08] MEDS: NOREPINEPHRINE 8 MG/250ML KIT 250 ML IV SCH (23:00)
[2017-07-09] VITALS (49 sets, daily range): BP systolic 121–173; BP diastolic 60–95
[2017-07-09] MEDS: FREE WATER GT SCH ×6 (02:00→22:00)
[2017-07-09] MEDS: VANCOMYCIN 1,250 MG in D5W 5% 250 ML IV SCH ×2 (03:00→15:00)
[2017-07-09 04:41] LABS: Basophils # (auto) 0 uL; Basophils % (auto) 0.5 % (0.0-2.0); Eosinophils # (auto) 0.1 uL; Eosinophils % (auto) 1.3 % (0.0-7.0); Hematocrit 37.9 % (41.0-53.0); Hemoglobin 11.8 g/dL (13.5-17.5); Lymphocytes # (auto) 0.8 uL; Lymphocytes % (auto) 9.1 % (10.0-50.0); Mean Corpuscular Hemoglobin 24.5 pg (28.0-32.0); Mean Corpuscular Hgb Conc. 31.2 g/dL (32.0-36.0); Mean Corpuscular Volume 78.5 fL (80.0-100.0); Monocytes # (auto) 0.7 uL; Monocytes % (auto) 8.3 % (0.0-12.0); Neutrophils # (auto) 7.2 uL; Neutrophils % (auto) 80.8 % (37.0-80.0); Nucleated Red Blood Cells % 0.1 %; Platelet Count (auto) 243 10^3/uL (140-450); Red Blood Cells 4.83 10^6/uL (4.5-5.90); Red Cell Distribution Width 18.5 % (11.8-14.3); White Blood Cell 8.9 10^3/uL (4.4-10.8)
[2017-07-09 05:06] LABS: Albumin 2.1 g/dL (3.4-5.0); BUN/Creatinine Ratio 23.7; Bilirubin, Total 0.8 mg/dL (0.2-1.0); Calcium 8.3 mg/dL (8.5-10.1); Potassium 3.2 mmol/L (3.5-5.1); Total Protein 6.9 g/dL (6.4-8.2)
[2017-07-09] MEDS: LACTULOSE 20Gm/30ML SOLN GT SCH ×5 (05:25→23:36)
[2017-07-09] MEDS: InsuLIN REG 1unit/0.01ml Soln (100units/ml) SC SCH ×5 (06:04→23:37)
[2017-07-09] MEDS: ACCU-CHEK COMFORT CURVE STRIP VI SCH ×5 (06:04→23:37)
[2017-07-09] MEDS: NutriHep 250 mL Bottle PO SCH ×2 (06:05→09:30)
[2017-07-09] MEDS: POTASSIUM CHL 20MEQ/50ML 50 ML IV SCH ×2 (07:15→10:15)
[2017-07-09] MEDS: INSULIN DETEMIR(LEVEMIR) 1unit/0.01ml Soln (100units/ml) SC SCH ×2 (10:00→22:00)
[2017-07-09] MEDS: PANTOPRAZOLE 40 MG/10 ML VIAL IV SCH (10:00)
[2017-07-09] MEDS ORDERED: D5W 5% 1,000 ML IV SCH (10:00)
[2017-07-09] MEDS ORDERED: ERTAPENEM SOD 1 GM INJ VIAL IM SCH (10:00)
[2017-07-09] MEDS: ERTAPENEM SOD INJ 1 GM in SODIUM CHL 0.9% 100 ML IV SCH (12:37)
[2017-07-09] MEDS ORDERED: InsuLIN REG 1unit/0.01ml Soln (100units/ml) SC ONE (12:45)
[2017-07-09] MEDS ORDERED: ACCU-CHEK COMFORT CURVE STRIP VI ONE (12:45)
[2017-07-09] MEDS ORDERED: Diabetisource AC 1 Liter GT SCH (14:15)
[2017-07-09] MEDS: ACETAMINOPHEN 650 MG RECT SUPP PR PRN (16:56)
[2017-07-09] MEDS: MIDAZOLAM DRIP 50 mg/50mL 50 ML IV SCH ×3 (20:27→23:37)
[2017-07-09] MEDS: PROPOFOL 100 ML IV SCH (22:05)
[2017-07-09] MEDS: NOREPINEPHRINE 8 MG/250ML KIT 250 ML IV SCH (23:00)
[2017-07-10] VITALS (75 sets, daily range): BP systolic 132–180; BP diastolic 63–113
[2017-07-10] MEDS: FREE WATER GT SCH ×6 (02:00→22:00)
[2017-07-10 02:28] LABS: Basophils # (auto) 0 uL; Basophils % (auto) 0.5 % (0.0-2.0); Eosinophils # (auto) 0.3 uL
[2017-07-10 02:30] LABS: Eosinophils % (auto) 4.1 % (0.0-7.0); Hematocrit 37.7 % (41.0-53.0); Hemoglobin 11.6 g/dL (13.5-17.5); Lymphocytes # (auto) 0.8 uL; Lymphocytes % (auto) 10.7 % (10.0-50.0); Mean Corpuscular Hemoglobin 24.1 pg (28.0-32.0); Mean Corpuscular Hgb Conc. 30.7 g/dL (32.0-36.0); Mean Corpuscular Volume 78.3 fL (80.0-100.0); Monocytes # (auto) 0.6 uL; Monocytes % (auto) 7.8 % (0.0-12.0); Neutrophils # (auto) 5.9 uL; Neutrophils % (auto) 76.9 % (37.0-80.0); Nucleated Red Blood Cells % 0.1 %; Platelet Count (auto) 234 10^3/uL (140-450); Red Blood Cells 4.81 10^6/uL (4.5-5.90); Red Cell Distribution Width 18.9 % (11.8-14.3); White Blood Cell 7.6 10^3/uL (4.4-10.8)
[2017-07-10 03:00] LABS: BUN/Creatinine Ratio 22.2; Calcium 8.3 mg/dL (8.5-10.1); Potassium 3.3 mmol/L (3.5-5.1)
[2017-07-10] MEDS: VANCOMYCIN 1,250 MG in D5W 5% 250 ML IV SCH ×2 (03:00→14:58)
[2017-07-10] MEDS: InsuLIN REG 1unit/0.01ml Soln (100units/ml) SC SCH ×3 (04:30→17:41)
[2017-07-10] MEDS: ACCU-CHEK COMFORT CURVE STRIP VI SCH ×3 (04:31→17:07)
[2017-07-10] MEDS: LACTULOSE 20Gm/30ML SOLN GT SCH ×3 (06:00→17:41)
[2017-07-10] MEDS: PANTOPRAZOLE 40 MG/10 ML VIAL IV SCH (09:40)
[2017-07-10] MEDS: ERTAPENEM SOD INJ 1 GM in SODIUM CHL 0.9% 100 ML IV SCH (09:41)
[2017-07-10] MEDS: INSULIN DETEMIR(LEVEMIR) 1unit/0.01ml Soln (100units/ml) SC SCH ×2 (09:41→22:00)
[2017-07-10] MEDS ORDERED: SPIRONOLACTONE 25 MG TAB PO STA (10:12)
[2017-07-10] MEDS ORDERED: POTASSIUM CHL 10% (20 MEQ/15ML) 15ml ORAL SOLN PO ONE (10:15)
[2017-07-10] MEDS: PROPOFOL 100 ML IV SCH (22:05)
[2017-07-10] MEDS: MIDAZOLAM DRIP 50 mg/50mL 50 ML IV SCH (22:25)
[2017-07-10] MEDS: NOREPINEPHRINE 8 MG/250ML KIT 250 ML IV SCH (23:00)
[2017-07-11] VITALS (87 sets, daily range): BP systolic 116–182; BP diastolic 57–104
[2017-07-11] MEDS: FREE WATER GT SCH ×6 (01:13→22:11)
[2017-07-11] MEDS: VANCOMYCIN 1,250 MG in D5W 5% 250 ML IV SCH ×2 (03:00→15:00)
[2017-07-11] MEDS: MIDAZOLAM DRIP 50 mg/50mL 50 ML IV SCH (03:52)
[2017-07-11 03:58] LABS: Basophils # (auto) 0.1 uL; Eosinophils % (auto) 3.6 % (0.0-7.0); Hemoglobin 11.6 g/dL (13.5-17.5); Nucleated Red Blood Cells % 0.1 %
[2017-07-11 03:59] LABS: Basophils % (auto) 0.8 % (0.0-2.0); Eosinophils # (auto) 0.3 uL; Hematocrit 37.5 % (41.0-53.0); Lymphocytes % (auto) 10.5 % (10.0-50.0); Mean Corpuscular Hemoglobin 24.1 pg (28.0-32.0); Mean Corpuscular Hgb Conc. 30.9 g/dL (32.0-36.0); Mean Corpuscular Volume 78.1 fL (80.0-100.0); Monocytes # (auto) 0.5 uL; Monocytes % (auto) 5.1 % (0.0-12.0); Neutrophils # (auto) 7.7 uL; Platelet Count (auto) 251 10^3/uL (140-450); Red Cell Distribution Width 18.8 % (11.8-14.3); White Blood Cell 9.6 10^3/uL (4.4-10.8)
[2017-07-11 04:07] LABS: Calcium 8.5 mg/dL (8.5-10.1); Potassium 3.4 mmol/L (3.5-5.1)
[2017-07-11] MEDS: InsuLIN REG 1unit/0.01ml Soln (100units/ml) SC SCH ×4 (06:00→18:00)
[2017-07-11] MEDS: LACTULOSE 20Gm/30ML SOLN GT SCH ×4 (06:07→18:11)
[2017-07-11] MEDS: ACCU-CHEK COMFORT CURVE STRIP VI SCH ×4 (06:07→18:12)
[2017-07-11] MEDS: PANTOPRAZOLE 40 MG/10 ML VIAL IV SCH (10:37)
[2017-07-11] MEDS: ERTAPENEM SOD INJ 1 GM in SODIUM CHL 0.9% 100 ML IV SCH (10:37)
[2017-07-11] MEDS: INSULIN DETEMIR(LEVEMIR) 1unit/0.01ml Soln (100units/ml) SC SCH ×2 (10:38→22:11)
[2017-07-11] MEDS: fentaNYL Drip 2500mCg/250mlNS 250 ML IV SCH (11:43)
[2017-07-11] MEDS: SPIRONOLACTONE 25 MG TAB PO SCH (18:11)
[2017-07-11] MEDS: D5W 5% 1,000 ML IV SCH (18:30)
[2017-07-11] MEDS: PROPOFOL 100 ML IV SCH (22:05)
[2017-07-11] MEDS: NOREPINEPHRINE 8 MG/250ML KIT 250 ML IV SCH (23:00)
[2017-07-12] VITALS (105 sets, daily range): BP systolic 104–166; BP diastolic 60–89
[2017-07-12] MEDS: ACCU-CHEK COMFORT CURVE STRIP VI SCH ×5 (00:19→23:48)
[2017-07-12] MEDS: MIDAZOLAM DRIP 50 mg/50mL 50 ML IV SCH ×4 (01:30→22:05)
[2017-07-12] MEDS: FREE WATER GT SCH ×6 (02:00→22:02)
[2017-07-12] MEDS: VANCOMYCIN 1,250 MG in D5W 5% 250 ML IV SCH ×2 (03:00→15:00)
[2017-07-12 03:58] LABS: Eosinophils # (auto) 0.3 uL; Hemoglobin 11.1 g/dL (13.5-17.5); Monocytes # (auto) 0.5 uL; Neutrophils # (auto) 6.6 uL; Nucleated Red Blood Cells % 0.1 %
[2017-07-12 04:00] LABS: Basophils # (auto) 0.1 uL; Eosinophils % (auto) 3.3 % (0.0-7.0); Hematocrit 35.6 % (41.0-53.0); Lymphocytes % (auto) 11.6 % (10.0-50.0); Mean Corpuscular Hgb Conc. 31.2 g/dL (32.0-36.0); Mean Corpuscular Volume 76.7 fL (80.0-100.0); Monocytes % (auto) 5.6 % (0.0-12.0); Neutrophils % (auto) 78.5 % (37.0-80.0); Platelet Count (auto) 228 10^3/uL (140-450); Red Blood Cells 4.64 10^6/uL (4.5-5.90); Red Cell Distribution Width 18.7 % (11.8-14.3); White Blood Cell 8.4 10^3/uL (4.4-10.8)
[2017-07-12] MEDS: LACTULOSE 20Gm/30ML SOLN GT SCH ×5 (05:32→23:48)
[2017-07-12] MEDS: SPIRONOLACTONE 25 MG TAB PO SCH ×2 (05:32→17:54)
[2017-07-12] MEDS: InsuLIN REG 1unit/0.01ml Soln (100units/ml) SC SCH ×5 (05:54→23:48)
[2017-07-12 06:38] LABS: BUN/Creatinine Ratio 23.9; Calcium 8.1 mg/dL (8.5-10.1); Potassium 3.4 mmol/L (3.5-5.1)
[2017-07-12] MEDS: D5W 5% 1,000 ML IV SCH (07:50)
[2017-07-12] MEDS: fentaNYL Drip 2500mCg/250mlNS 250 ML IV SCH (08:27)
[2017-07-12] MEDS: INSULIN DETEMIR(LEVEMIR) 1unit/0.01ml Soln (100units/ml) SC SCH ×2 (09:34→22:03)
[2017-07-12] MEDS: PANTOPRAZOLE 40 MG/10 ML VIAL IV SCH (09:34)
[2017-07-12] MEDS: ERTAPENEM SOD INJ 1 GM in SODIUM CHL 0.9% 100 ML IV SCH (10:16)
[2017-07-12] MEDS ORDERED: POTASSIUM CHLORIDE 20 MEQ in D5W 5% 1,000 ML IV SCH (11:45)
[2017-07-12] MEDS ORDERED: POTASSIUM CHL 10% (20 MEQ/15ML) 15ml ORAL SOLN GT ONE (12:15)
[2017-07-12] MEDS: METOCLOPRAMIDE HCL 5MG/ml INJ 2ml VIAL IV SCH (22:02)
[2017-07-12] MEDS: NOREPINEPHRINE 8 MG/250ML KIT 250 ML IV SCH (23:00)
[2017-07-13] VITALS (103 sets, daily range): BP systolic 98–150; BP diastolic 57–94
[2017-07-13] MEDS: PROPOFOL 100 ML IV SCH ×3 (02:00→20:45)
[2017-07-13] MEDS: FREE WATER GT SCH ×6 (02:25→22:00)
[2017-07-13] MEDS ORDERED: VANCOMYCIN 1,250 MG in SODIUM CHL 0.9% 250 ML IV SCH (03:00)
[2017-07-13] MEDS: ACCU-CHEK COMFORT CURVE STRIP VI SCH ×3 (06:00→18:00)
[2017-07-13 06:22] LABS: Potassium 3.5 mmol/L (3.5-5.1)
[2017-07-13 06:26] LABS: BUN/Creatinine Ratio 26.5; Calcium 8.7 mg/dL (8.5-10.1)
[2017-07-13] MEDS: LACTULOSE 20Gm/30ML SOLN GT SCH ×3 (06:33→18:00)
[2017-07-13] MEDS: METOCLOPRAMIDE HCL 5MG/ml INJ 2ml VIAL IV SCH ×3 (06:33→22:27)
[2017-07-13] MEDS: SPIRONOLACTONE 25 MG TAB PO SCH ×2 (06:33→18:00)
[2017-07-13] MEDS: InsuLIN REG 1unit/0.01ml Soln (100units/ml) SC SCH ×3 (06:34→18:00)
[2017-07-13] MEDS: fentaNYL Drip 2500mCg/250mlNS 250 ML IV SCH ×2 (07:51→20:00)
[2017-07-13] MEDS: MIDAZOLAM DRIP 50 mg/50mL 50 ML IV SCH (07:51)
[2017-07-13] MEDS: INSULIN DETEMIR(LEVEMIR) 1unit/0.01ml Soln (100units/ml) SC SCH ×2 (10:00→22:27)
[2017-07-13] MEDS: PANTOPRAZOLE 40 MG/10 ML VIAL IV SCH (10:00)
[2017-07-13] MEDS: ERTAPENEM SOD INJ 1 GM in SODIUM CHL 0.9% 100 ML IV SCH (10:00)
[2017-07-13] MEDS ORDERED: POTASSIUM CHL 20 Meq TABLET PO ONE (14:15)
[2017-07-13] MEDS ORDERED: IOHEXOL 300 MG/ML 100ML BOTTLE IJ ONE (14:54)
[2017-07-13] MEDS ORDERED: NALOXONE HCL 0.4 MG/ML VIAL ONE (15:23)
[2017-07-13] MEDS ORDERED: FLUMAZENIL 0.1 MG/ML INJ 10ML MDV IV ONE (15:23)
[2017-07-13] MEDS ORDERED: diphenhdrAMINE HCL 50 MG/1 ML VL ONE (15:24)
[2017-07-13] MEDS ORDERED: HYDROmorphone HCL 2 MG/ML VL ONE (15:24)
[2017-07-13] MEDS ORDERED: BENZOCAINE (DENTAL) 20 % SPRAY 60ML MT ONE (15:24)
[2017-07-13] MEDS ORDERED: SODIUM CHLORIDE LOCK 0 ML ONE (15:24)
[2017-07-13] MEDS ORDERED: MIDAZOLAM HCL 5 MG/ML-1ML VIAL ONE (15:24)
[2017-07-13] MEDS ORDERED: fentaNYL CITRATE 100 MCG/2 ML VL ONE (15:25)
[2017-07-13] MEDS ORDERED: EPINEPHrine HCL 1 MG/1 ML AMP ONE (15:26)
[2017-07-13] MEDS ORDERED: LIDOCAINE 2%HCL (LOCAL ANESTH.) INJ 20ML MDV ONE (15:26)
[2017-07-13] MEDS ORDERED: LIDOCAINE HCL 2% TOP JELLY 5ML TOP ONE (15:26)
[2017-07-13] MEDS: LINEZOLID 600MG/300ML 300 ML IV SCH (16:00)
[2017-07-13] MEDS ORDERED: MIDAZOLAM DRIP 100 mg/100mL NS 100 ML IV ONE (16:10)
[2017-07-13] MEDS ORDERED: POTASSIUM CHL 10% (20 MEQ/15ML) 15ml ORAL SOLN ONE (16:27)
[2017-07-13] MEDS: MIDAZOLAM DRIP 100 mg/100mL NS 100 ML IV SCH (20:45)
[2017-07-13] MEDS: NOREPINEPHRINE 8 MG/250ML KIT 250 ML IV SCH (23:00)
[2017-07-14] VITALS (106 sets, daily range): BP systolic 99–148; BP diastolic 55–84
[2017-07-14] MEDS: FREE WATER GT SCH ×6 (01:58→22:00)
[2017-07-14] MEDS: MIDAZOLAM DRIP 100 mg/100mL NS 100 ML IV SCH ×2 (03:13→08:55)
[2017-07-14] MEDS: LINEZOLID 600MG/300ML 300 ML IV SCH ×2 (03:55→16:00)
[2017-07-14 05:34] LABS: Basophils # (auto) 0.1 uL; Eosinophils # (auto) 0.4 uL; Hematocrit 35.5 % (41.0-53.0); Hemoglobin 10.9 g/dL (13.5-17.5); Lymphocytes # (auto) 0.9 uL; Mean Corpuscular Hgb Conc. 30.8 g/dL (32.0-36.0); Monocytes # (auto) 0.6 uL; Neutrophils # (auto) 5.9 uL
[2017-07-14 05:36] LABS: Basophils % (auto) 1.2 % (0.0-2.0); Eosinophils % (auto) 5.3 % (0.0-7.0); Lymphocytes % (auto) 11.7 % (10.0-50.0); Mean Corpuscular Hemoglobin 24.1 pg (28.0-32.0); Monocytes % (auto) 7.7 % (0.0-12.0); Neutrophils % (auto) 74.1 % (37.0-80.0); Platelet Count (auto) 242 10^3/uL (140-450); Red Blood Cells 4.55 10^6/uL (4.5-5.90); Red Cell Distribution Width 18.5 % (11.8-14.3)
[2017-07-14 05:52] LABS: Calcium 8.6 mg/dL (8.5-10.1); Potassium 3.8 mmol/L (3.5-5.1)
[2017-07-14 05:54] LABS: BUN/Creatinine Ratio 24.1
[2017-07-14] MEDS: SPIRONOLACTONE 25 MG TAB PO SCH ×2 (06:00→18:00)
[2017-07-14] MEDS: ACCU-CHEK COMFORT CURVE STRIP VI SCH ×4 (06:00→18:00)
[2017-07-14] MEDS: METOCLOPRAMIDE HCL 5MG/ml INJ 2ml VIAL IV SCH ×3 (06:45→22:00)
[2017-07-14] MEDS: LACTULOSE 20Gm/30ML SOLN GT SCH ×4 (06:45→18:00)
[2017-07-14] MEDS: InsuLIN REG 1unit/0.01ml Soln (100units/ml) SC SCH ×4 (06:45→18:00)
[2017-07-14] MEDS ORDERED: SODIUM CHLORIDE LOCK 0 ML ONE (08:13)
[2017-07-14] MEDS ORDERED: BENZOCAINE (DENTAL) 20 % SPRAY 60ML MT ONE (08:13)
[2017-07-14] MEDS ORDERED: MIDAZOLAM HCL 5 MG/ML-1ML VIAL ONE (08:13)
[2017-07-14] MEDS ORDERED: EPINEPHrine HCL 1 MG/1 ML AMP ONE ×2 (08:13→12:07)
[2017-07-14] MEDS ORDERED: LIDOCAINE 2%HCL (LOCAL ANESTH.) INJ 20ML MDV ONE (08:13)
[2017-07-14] MEDS ORDERED: LIDOCAINE HCL 2% TOP JELLY 5ML TOP ONE (08:14)
[2017-07-14] MEDS: fentaNYL Drip 2500mCg/250mlNS 250 ML IV SCH (08:45)
[2017-07-14] MEDS ORDERED: ERTAPENEM SOD 1 GM INJ VIAL IM SCH (10:00)
[2017-07-14] MEDS: PANTOPRAZOLE 40 MG/10 ML VIAL IV SCH (10:00)
[2017-07-14] MEDS: INSULIN DETEMIR(LEVEMIR) 1unit/0.01ml Soln (100units/ml) SC SCH ×2 (10:00→22:00)
[2017-07-14] MEDS: ERTAPENEM SOD INJ 1 GM in SODIUM CHL 0.9% 100 ML IV SCH (10:30)
[2017-07-14] MEDS ORDERED: BISACODYL 10 MG RECT SUPP PR PRN (20:00)
[2017-07-14] MEDS: PROPOFOL 100 ML IV SCH (22:05)
[2017-07-14] MEDS: NOREPINEPHRINE 8 MG/250ML KIT 250 ML IV SCH (23:00)
[2017-07-15] VITALS (107 sets, daily range): BP systolic 100–162; BP diastolic 55–94
[2017-07-15] MEDS: MIDAZOLAM DRIP 100 mg/100mL NS 100 ML IV SCH ×3 (02:15→12:58)
[2017-07-15] MEDS: FREE WATER GT SCH ×6 (02:24→21:51)
[2017-07-15] MEDS: LINEZOLID 600MG/300ML 300 ML IV SCH ×2 (04:00→15:52)
[2017-07-15 05:23] LABS: Eosinophils # (auto) 0.3 uL; Lymphocytes # (auto) 1.2 uL; Lymphocytes % (auto) 15.1 % (10.0-50.0); Monocytes # (auto) 0.7 uL; Nucleated Red Blood Cells % 0.1 %; White Blood Cell 7.6 10^3/uL (4.4-10.8)
[2017-07-15 05:25] LABS: Basophils # (auto) 0.1 uL; Basophils % (auto) 1.6 % (0.0-2.0); Eosinophils % (auto) 3.4 % (0.0-7.0); Hematocrit 34.1 % (41.0-53.0); Hemoglobin 10.4 g/dL (13.5-17.5); Mean Corpuscular Hemoglobin 23.9 pg (28.0-32.0); Mean Corpuscular Hgb Conc. 30.5 g/dL (32.0-36.0); Mean Corpuscular Volume 78.4 fL (80.0-100.0); Monocytes % (auto) 9.4 % (0.0-12.0); Neutrophils # (auto) 5.4 uL; Neutrophils % (auto) 70.5 % (37.0-80.0); Platelet Count (auto) 278 10^3/uL (140-450); Red Blood Cells 4.35 10^6/uL (4.5-5.90)
[2017-07-15 05:42] LABS: BUN/Creatinine Ratio 21.3; CRP High Sensitivity 14.7 mg/dL (< 0.3); Calcium 8.4 mg/dL (8.5-10.1); Potassium 3.8 mmol/L (3.5-5.1)
[2017-07-15] MEDS: ACCU-CHEK COMFORT CURVE STRIP VI SCH ×4 (06:00→17:51)
[2017-07-15] MEDS: InsuLIN REG 1unit/0.01ml Soln (100units/ml) SC SCH ×4 (06:00→17:52)
[2017-07-15] MEDS: SPIRONOLACTONE 25 MG TAB PO SCH ×2 (06:00→17:48)
[2017-07-15] MEDS: METOCLOPRAMIDE HCL 5MG/ml INJ 2ml VIAL IV SCH ×3 (06:00→21:49)
[2017-07-15] MEDS: LACTULOSE 20Gm/30ML SOLN GT SCH ×4 (06:00→17:48)
[2017-07-15] MEDS: fentaNYL Drip 2500mCg/250mlNS 250 ML IV SCH ×3 (07:43→21:51)
[2017-07-15] MEDS: ERTAPENEM SOD INJ 1 GM in SODIUM CHL 0.9% 100 ML IV SCH (09:31)
[2017-07-15] MEDS: INSULIN DETEMIR(LEVEMIR) 1unit/0.01ml Soln (100units/ml) SC SCH ×2 (09:31→22:15)
[2017-07-15] MEDS: PANTOPRAZOLE 40 MG/10 ML VIAL IV SCH (09:31)
[2017-07-15] MEDS: PROPOFOL 100 ML IV SCH (22:05)
[2017-07-15] MEDS: NOREPINEPHRINE 8 MG/250ML KIT 250 ML IV SCH (23:00)
[2017-07-16] VITALS (107 sets, daily range): BP systolic 133–174; BP diastolic 71–118
[2017-07-16] MEDS: LACTULOSE 20Gm/30ML SOLN GT SCH ×4 (00:21→17:39)
[2017-07-16] MEDS: InsuLIN REG 1unit/0.01ml Soln (100units/ml) SC SCH ×4 (00:39→17:39)
[2017-07-16] MEDS: ACCU-CHEK COMFORT CURVE STRIP VI SCH ×4 (00:39→17:39)
[2017-07-16] MEDS: FREE WATER GT SCH ×6 (01:45→22:17)
[2017-07-16] MEDS: LINEZOLID 600MG/300ML 300 ML IV SCH ×2 (04:20→16:17)
[2017-07-16] MEDS: METOCLOPRAMIDE HCL 5MG/ml INJ 2ml VIAL IV SCH ×3 (06:09→22:26)
[2017-07-16] MEDS: SPIRONOLACTONE 25 MG TAB PO SCH ×2 (06:09→17:39)
[2017-07-16] MEDS: PANTOPRAZOLE 40 MG/10 ML VIAL IV SCH (09:28)
[2017-07-16] MEDS: ERTAPENEM SOD INJ 1 GM in SODIUM CHL 0.9% 100 ML IV SCH (09:28)
[2017-07-16] MEDS: INSULIN DETEMIR(LEVEMIR) 1unit/0.01ml Soln (100units/ml) SC SCH ×2 (09:29→22:17)
[2017-07-16] MEDS ORDERED: METOPROLOL TARTRATE 25 MG TAB PO SCH (15:30)
[2017-07-16] MEDS ORDERED: FLUCONAZOLE 200MG/100ML 100 ML IV ONE (15:40)
[2017-07-16] MEDS: METOPROLOL TARTRATE 25 MG TAB PO SCH ×2 (16:17→22:00)
[2017-07-16] MEDS: ACETAMINOPHEN 650 mg PER 20 mL UD NG PRN (16:37)
[2017-07-16] MEDS: fentaNYL Drip 2500mCg/250mlNS 250 ML IV SCH (17:14)
[2017-07-16] MEDS: MIDAZOLAM DRIP 100 mg/100mL NS 100 ML IV SCH (18:15)
[2017-07-16] MEDS: METOPROLOL TARTRATE 1MG/1ML-5ML VIAL IV PRN (20:05)
[2017-07-16] MEDS: PROPOFOL 100 ML IV SCH (22:05)
[2017-07-16] MEDS: NOREPINEPHRINE 8 MG/250ML KIT 250 ML IV SCH (23:00)
[2017-07-17] VITALS (92 sets, daily range): BP systolic 107–175; BP diastolic 58–102
[2017-07-17] MEDS: InsuLIN REG 1unit/0.01ml Soln (100units/ml) SC SCH ×4 (00:15→16:46)
[2017-07-17] MEDS: ACCU-CHEK COMFORT CURVE STRIP VI SCH ×4 (00:15→16:46)
[2017-07-17] MEDS: FREE WATER GT SCH ×6 (02:00→22:47)
[2017-07-17] MEDS: LINEZOLID 600MG/300ML 300 ML IV SCH ×2 (04:06→16:45)
[2017-07-17] MEDS: SPIRONOLACTONE 25 MG TAB PO SCH ×2 (05:59→16:45)
[2017-07-17] MEDS: LACTULOSE 20Gm/30ML SOLN GT SCH ×4 (05:59→16:45)
[2017-07-17] MEDS: METOCLOPRAMIDE HCL 5MG/ml INJ 2ml VIAL IV SCH ×3 (05:59→22:48)
[2017-07-17 06:51] LABS: Basophils # (auto) 0.1 uL; Basophils % (auto) 1.4 % (0.0-2.0); Eosinophils # (auto) 0.2 uL; Eosinophils % (auto) 1.8 % (0.0-7.0); Hematocrit 34.9 % (41.0-53.0); Hemoglobin 11.1 g/dL (13.5-17.5); Lymphocytes # (auto) 1.4 uL; Lymphocytes % (auto) 16.3 % (10.0-50.0); Mean Corpuscular Hemoglobin 24.1 pg (28.0-32.0); Mean Corpuscular Hgb Conc. 31.7 g/dL (32.0-36.0); Monocytes # (auto) 0.9 uL; Neutrophils # (auto) 5.9 uL; Neutrophils % (auto) 69.5 % (37.0-80.0); Nucleated Red Blood Cells % 0.1 %; Platelet Count (auto) 406 10^3/uL (140-450); Red Blood Cells 4.59 10^6/uL (4.5-5.90); Red Cell Distribution Width 19.4 % (11.8-14.3); White Blood Cell 8.6 10^3/uL (4.4-10.8)
[2017-07-17 06:54] LABS: BUN/Creatinine Ratio 19.8; Calcium 9.1 mg/dL (8.5-10.1); Magnesium 1.8 mg/dL (1.6-2.6); Potassium 3.6 mmol/L (3.5-5.1)
[2017-07-17] MEDS ORDERED: FUROSEMIDE 40 MG/4 ML VIAL IV ONE (09:15)
[2017-07-17] MEDS ORDERED: POTASSIUM CHL 10% (20 MEQ/15ML) 15ml ORAL SOLN GT ONE (09:15)
[2017-07-17] MEDS: PANTOPRAZOLE 40 MG/10 ML VIAL IV SCH (09:49)
[2017-07-17] MEDS: MAGNESIUM SULFATE 1GM/100ML 100 ML IV SCH ×2 (09:50→11:50)
[2017-07-17] MEDS: ERTAPENEM SOD INJ 1 GM in SODIUM CHL 0.9% 100 ML IV SCH (09:50)
[2017-07-17] MEDS: METOPROLOL TARTRATE 25 MG TAB PO SCH ×2 (09:51→22:48)
[2017-07-17] MEDS: INSULIN DETEMIR(LEVEMIR) 1unit/0.01ml Soln (100units/ml) SC SCH ×2 (10:06→22:49)
[2017-07-17] MEDS ORDERED: FLUCONAZOLE 200MG/100ML 100 ML IV SCH (16:00)
[2017-07-17] MEDS: MIDAZOLAM DRIP 100 mg/100mL NS 100 ML IV SCH (18:15)
[2017-07-17] MEDS: MIDAZOLAM HCL 1MG/1ML-2 ML VIAL IV PRN (18:45)
[2017-07-17] MEDS: ACETAMINOPHEN 650 mg PER 20 mL UD NG PRN (20:25)
[2017-07-17] MEDS: PROPOFOL 100 ML IV SCH (22:05)
[2017-07-17] MEDS: NOREPINEPHRINE 8 MG/250ML KIT 250 ML IV SCH (23:00)
[2017-07-18] VITALS (108 sets, daily range): BP systolic 101–166; BP diastolic 57–107
[2017-07-18] MEDS: ACCU-CHEK COMFORT CURVE STRIP VI SCH ×4 (00:21→18:08)
[2017-07-18] MEDS: InsuLIN REG 1unit/0.01ml Soln (100units/ml) SC SCH ×4 (00:24→18:00)
[2017-07-18] MEDS: FREE WATER GT SCH ×6 (02:49→22:00)
[2017-07-18] MEDS: MIDAZOLAM HCL 1MG/1ML-2 ML VIAL IV PRN ×3 (02:56→21:20)
[2017-07-18] MEDS: LINEZOLID 600MG/300ML 300 ML IV SCH ×2 (03:24→16:00)
[2017-07-18 03:49] LABS: Eosinophils # (auto) 0.1 uL; Monocytes # (auto) 0.9 uL
[2017-07-18 03:53] LABS: Basophils # (auto) 0.1 uL; Basophils % (auto) 1.6 % (0.0-2.0); Eosinophils % (auto) 1.3 % (0.0-7.0); Hematocrit 35.4 % (41.0-53.0); Lymphocytes # (auto) 1.4 uL; Lymphocytes % (auto) 16.5 % (10.0-50.0); Mean Corpuscular Hemoglobin 23.5 pg (28.0-32.0); Mean Corpuscular Hgb Conc. 31.1 g/dL (32.0-36.0); Mean Corpuscular Volume 75.4 fL (80.0-100.0); Monocytes % (auto) 10.8 % (0.0-12.0); Neutrophils # (auto) 5.9 uL; Neutrophils % (auto) 69.8 % (37.0-80.0); Platelet Count (auto) 415 10^3/uL (140-450); Red Blood Cells 4.69 10^6/uL (4.5-5.90); Red Cell Distribution Width 19.8 % (11.8-14.3); White Blood Cell 8.5 10^3/uL (4.4-10.8)
[2017-07-18 04:16] LABS: Albumin 2.1 g/dL (3.4-5.0); BUN/Creatinine Ratio 18.1; Bilirubin, Total 0.7 mg/dL (0.2-1.0); Calcium 8.3 mg/dL (8.5-10.1); Magnesium 2.1 mg/dL (1.6-2.6); Potassium 3.2 mmol/L (3.5-5.1); Total Protein 7.2 g/dL (6.4-8.2)
[2017-07-18] MEDS: METOPROLOL TARTRATE 1MG/1ML-5ML VIAL IV PRN (04:21)
[2017-07-18] MEDS: LACTULOSE 20Gm/30ML SOLN GT SCH ×3 (05:57→22:00)
[2017-07-18] MEDS: SPIRONOLACTONE 25 MG TAB PO SCH ×2 (05:57→18:08)
[2017-07-18] MEDS: METOCLOPRAMIDE HCL 5MG/ml INJ 2ml VIAL IV SCH ×3 (05:57→22:00)
[2017-07-18] MEDS: POTASSIUM CHL 20MEQ/50ML 50 ML IV SCH ×2 (10:30→11:21)
[2017-07-18] MEDS: PANTOPRAZOLE 40 MG/10 ML VIAL IV SCH (10:30)
[2017-07-18] MEDS: METOPROLOL TARTRATE 25 MG TAB PO SCH ×2 (10:30→22:00)
[2017-07-18] MEDS: INSULIN DETEMIR(LEVEMIR) 1unit/0.01ml Soln (100units/ml) SC SCH ×2 (10:30→22:00)
[2017-07-18] MEDS ORDERED: ACETAMINOPHEN 650 mg PER 20 mL UD NG PRN (13:00)
[2017-07-18] MEDS ORDERED: ONDANSETRON HCL 4 MG/2 ML VIAL IV PRN (13:00)
[2017-07-18] MEDS ORDERED: ACETAMINOPHEN 650 MG RECT SUPP PR PRN (13:00)
[2017-07-18] MEDS: ENOXAPARIN SOD 40 MG/0.4 ML SYRINGE SC SCH (14:49)
[2017-07-18] MEDS: ERTAPENEM SOD INJ 1 GM in SODIUM CHL 0.9% 100 ML IV SCH (17:09)
[2017-07-18] MEDS: MIDAZOLAM DRIP 100 mg/100mL NS 100 ML IV SCH (21:21)
[2017-07-18] MEDS: PROPOFOL 100 ML IV SCH (22:05)
[2017-07-18] MEDS: NOREPINEPHRINE 8 MG/250ML KIT 250 ML IV SCH (23:00)
[2017-07-18] MEDS: ACETYLCYSTEINE 10 %(100MG/ML) SOL 4ML NEB SCH (23:06)
[2017-07-18] MEDS: ALBUTEROL SULF 2.5 MG/0.5ML(0.5%) NEB SOLN NEB PRN (23:07)
[2017-07-19] VITALS (70 sets, daily range): BP systolic 93–165; BP diastolic 52–115
[2017-07-19] MEDS: MIDAZOLAM HCL 1MG/1ML-2 ML VIAL IV PRN ×2 (00:34→02:44)
[2017-07-19] MEDS: FREE WATER GT SCH ×6 (02:00→22:00)
[2017-07-19] MEDS ORDERED: fentaNYL Drip 2500mCg/250mlNS 250 ML IV ONE (02:32)
[2017-07-19] MEDS: fentaNYL Drip 2500mCg/250mlNS 250 ML IV SCH (02:45)
[2017-07-19] MEDS: LINEZOLID 600MG/300ML 300 ML IV SCH ×2 (04:00→16:32)
[2017-07-19] MEDS: METOCLOPRAMIDE HCL 5MG/ml INJ 2ml VIAL IV SCH ×3 (06:00→22:00)
[2017-07-19] MEDS: InsuLIN REG 1unit/0.01ml Soln (100units/ml) SC SCH ×4 (06:00→17:14)
[2017-07-19] MEDS: ACCU-CHEK COMFORT CURVE STRIP VI SCH ×4 (06:07→17:14)
[2017-07-19] MEDS: SPIRONOLACTONE 25 MG TAB PO SCH ×2 (06:07→17:14)
[2017-07-19 06:11] LABS: Hemoglobin 10.1 g/dL (13.5-17.5); Neutrophils # (auto) 3.7 uL
[2017-07-19 06:13] LABS: Basophils # (auto) 0.2 uL; Basophils % (auto) 2.7 % (0.0-2.0); Eosinophils # (auto) 0.2 uL; Eosinophils % (auto) 4.1 % (0.0-7.0); Hematocrit 32.7 % (41.0-53.0); Lymphocytes % (auto) 16.5 % (10.0-50.0); Mean Corpuscular Hemoglobin 23.5 pg (28.0-32.0); Mean Corpuscular Hgb Conc. 30.9 g/dL (32.0-36.0); Mean Corpuscular Volume 76.1 fL (80.0-100.0); Monocytes # (auto) 0.9 uL; Monocytes % (auto) 14.3 % (0.0-12.0); Neutrophils % (auto) 62.4 % (37.0-80.0); Nucleated Red Blood Cells % 0.1 %; Platelet Count (auto) 400 10^3/uL (140-450); Red Cell Distribution Width 19.8 % (11.8-14.3)
[2017-07-19 06:20] LABS: INR 1.17 (0.9-1.15); Partial Thromboplastin Time 29.9 sec (22.64-33.71); Prothrombin Time 12.8 sec (9.37-12.3)
[2017-07-19] MEDS: ALBUTEROL SULF 2.5 MG/0.5ML(0.5%) NEB SOLN NEB PRN ×3 (06:23→22:21)
[2017-07-19] MEDS: ACETYLCYSTEINE 10 %(100MG/ML) SOL 4ML NEB SCH ×3 (06:24→22:21)
[2017-07-19 06:48] LABS: BUN/Creatinine Ratio 20.7
[2017-07-19 06:49] LABS: Albumin 1.9 g/dL (3.4-5.0); Bilirubin, Direct 0.3 mg/dL (0-0.2); Bilirubin, Total 0.5 mg/dL (0.2-1.0); Calcium 7.9 mg/dL (8.5-10.1); Magnesium 1.9 mg/dL (1.6-2.6)
[2017-07-19] MEDS ORDERED: BENZOCAINE (DENTAL) 20 % SPRAY 60ML MT ONE (08:11)
[2017-07-19] MEDS ORDERED: LIDOCAINE HCL 2% TOP JELLY 5ML TOP ONE (08:12)
[2017-07-19] MEDS ORDERED: LIDOCAINE 2%HCL (LOCAL ANESTH.) INJ 20ML MDV ONE (08:12)
[2017-07-19] MEDS ORDERED: MIDAZOLAM HCL 5 MG/ML-1ML VIAL ONE (08:12)
[2017-07-19] MEDS ORDERED: EPINEPHrine HCL 1 MG/1 ML AMP ONE (08:12)
[2017-07-19] MEDS ORDERED: SODIUM CHLORIDE LOCK 30 ML ONE (08:12)
[2017-07-19] MEDS ORDERED: GLYCOPYRROLATE 0.2 MG/ML 1ML VIAL ONE (08:37)
[2017-07-19] MEDS ORDERED: POTASSIUM CHL 20MEQ/50ML 50 ML IV ONE (09:45)
[2017-07-19] MEDS: ERTAPENEM SOD INJ 1 GM in SODIUM CHL 0.9% 100 ML IV SCH (10:00)
[2017-07-19] MEDS: METOPROLOL TARTRATE 25 MG TAB PO SCH ×2 (11:00→22:00)
[2017-07-19] MEDS: LACTULOSE 20Gm/30ML SOLN GT SCH ×2 (11:00→22:00)
[2017-07-19] MEDS: ENOXAPARIN SOD 40 MG/0.4 ML SYRINGE SC SCH (11:00)
[2017-07-19] MEDS: PANTOPRAZOLE 40 MG/10 ML VIAL IV SCH (11:00)
[2017-07-19] MEDS: INSULIN DETEMIR(LEVEMIR) 1unit/0.01ml Soln (100units/ml) SC SCH ×2 (11:00→22:00)
[2017-07-19] MEDS: POTASSIUM CHL 20MEQ/50ML 50 ML IV SCH ×2 (14:00→16:24)
[2017-07-19] MEDS ORDERED: FUROSEMIDE 20 MG/2 ML VIAL IV ONE (15:45)
[2017-07-19] MEDS: MORPHINE SULFATE 4 MG/ML SYR/VIAL IV PRN (17:16)
[2017-07-19] MEDS: MIDAZOLAM DRIP 100 mg/100mL NS 100 ML IV SCH (18:15)
[2017-07-19 18:40] LABS: Basophils # (auto) 0.1 uL; Eosinophils # (auto) 0.2 uL; Hematocrit 34.4 % (41.0-53.0); Mean Corpuscular Hemoglobin 23.9 pg (28.0-32.0); Monocytes # (auto) 0.8 uL; Neutrophils # (auto) 5.7 uL; Nucleated Red Blood Cells % 0.1 %
[2017-07-19 18:42] LABS: Eosinophils % (auto) 2.9 % (0.0-7.0); Hemoglobin 10.9 g/dL (13.5-17.5); Lymphocytes % (auto) 13.1 % (10.0-50.0); Mean Corpuscular Hgb Conc. 31.7 g/dL (32.0-36.0); Mean Corpuscular Volume 75.6 fL (80.0-100.0); Monocytes % (auto) 10.8 % (0.0-12.0); Neutrophils % (auto) 72.2 % (37.0-80.0); Platelet Count (auto) 446 10^3/uL (140-450); Red Blood Cells 4.55 10^6/uL (4.5-5.90); Red Cell Distribution Width 19.7 % (11.8-14.3); White Blood Cell 7.8 10^3/uL (4.4-10.8)
[2017-07-19 19:02] LABS: Albumin 2.2 g/dL (3.4-5.0); BUN/Creatinine Ratio 19.8; Bilirubin, Direct 0.3 mg/dL (0-0.2); Bilirubin, Total 0.6 mg/dL (0.2-1.0); Magnesium 1.8 mg/dL (1.6-2.6); Potassium 3.5 mmol/L (3.5-5.1); Total Protein 7.8 g/dL (6.4-8.2)
[2017-07-19 19:03] LABS: INR 1.14 (0.9-1.15); Prothrombin Time 12.4 sec (9.37-12.3)
[2017-07-19] MEDS ORDERED: HALOPERIDOL LACTATE 5 MG/ML INJ VIAL IM ONE (20:00)
[2017-07-19] MEDS ORDERED: HALOPERIDOL LACTATE 5 MG/ML INJ VIAL ONE (20:00)
[2017-07-19] MEDS: PROPOFOL 100 ML IV SCH (22:05)
[2017-07-19] MEDS: NOREPINEPHRINE 8 MG/250ML KIT 250 ML IV SCH (23:00)
[2017-07-20] VITALS (43 sets, daily range): BP systolic 120–166; BP diastolic 72–110
[2017-07-20] MEDS: FREE WATER GT SCH ×6 (02:00→22:00)
[2017-07-20] MEDS: MORPHINE SULFATE 4 MG/ML SYR/VIAL IV PRN ×2 (04:20→18:49)
[2017-07-20] MEDS: LINEZOLID 600MG/300ML 300 ML IV SCH ×2 (04:20→16:00)
[2017-07-20 05:40] LABS: Basophils # (auto) 0.1 uL; Eosinophils # (auto) 0.1 uL; Lymphocytes # (auto) 1.3 uL; Monocytes # (auto) 0.9 uL; Neutrophils # (auto) 4.6 uL; Nucleated Red Blood Cells % 0.1 %
[2017-07-20 05:41] LABS: Basophils % (auto) 1.4 % (0.0-2.0); Eosinophils % (auto) 1.7 % (0.0-7.0); Hematocrit 33.1 % (41.0-53.0); Hemoglobin 10.6 g/dL (13.5-17.5); Lymphocytes % (auto) 18.5 % (10.0-50.0); Mean Corpuscular Hemoglobin 24.1 pg (28.0-32.0); Mean Corpuscular Volume 75.1 fL (80.0-100.0); Monocytes % (auto) 12.5 % (0.0-12.0); Neutrophils % (auto) 65.9 % (37.0-80.0); Platelet Count (auto) 443 10^3/uL (140-450); Red Blood Cells 4.41 10^6/uL (4.5-5.90); Red Cell Distribution Width 19.9 % (11.8-14.3); White Blood Cell 7.1 10^3/uL (4.4-10.8)
[2017-07-20 05:48] LABS: INR 1.16 (0.9-1.15); Partial Thromboplastin Time 29.2 sec (22.64-33.71); Prothrombin Time 12.7 sec (9.37-12.3)
[2017-07-20] MEDS: ALBUTEROL SULF 2.5 MG/0.5ML(0.5%) NEB SOLN NEB PRN ×3 (05:51→22:01)
[2017-07-20] MEDS: ACETYLCYSTEINE 10 %(100MG/ML) SOL 4ML NEB SCH ×3 (05:52→22:01)
[2017-07-20 05:56] LABS: Albumin 2.2 g/dL (3.4-5.0); BUN/Creatinine Ratio 18.4; Bilirubin, Direct 0.3 mg/dL (0-0.2); Bilirubin, Total 0.6 mg/dL (0.2-1.0); Calcium 8.1 mg/dL (8.5-10.1); Potassium 3.3 mmol/L (3.5-5.1); Total Protein 7.7 g/dL (6.4-8.2)
[2017-07-20] MEDS: SPIRONOLACTONE 25 MG TAB PO SCH ×2 (06:00→17:34)
[2017-07-20] MEDS: METOCLOPRAMIDE HCL 5MG/ml INJ 2ml VIAL IV SCH ×3 (06:00→22:00)
[2017-07-20] MEDS: ACCU-CHEK COMFORT CURVE STRIP VI SCH ×4 (06:00→17:34)
[2017-07-20] MEDS: InsuLIN REG 1unit/0.01ml Soln (100units/ml) SC SCH ×4 (06:00→18:00)
[2017-07-20] MEDS ORDERED: POTASSIUM CHL 20MEQ/50ML 50 ML IV ONE (06:53)
[2017-07-20] MEDS: POTASSIUM CHL 20MEQ/50ML 50 ML IV SCH ×2 (07:00→08:45)
[2017-07-20] MEDS: LACTULOSE 20Gm/30ML SOLN GT SCH ×2 (08:41→22:00)
[2017-07-20] MEDS ORDERED: DEXTROSE (50%) 50ML SYRG IV PRN (09:15)
[2017-07-20] MEDS ORDERED: traMADol HCL 50 MG TAB PO PRN (09:45)
[2017-07-20] MEDS: INSULIN DETEMIR(LEVEMIR) 1unit/0.01ml Soln (100units/ml) SC SCH ×2 (10:00→22:00)
[2017-07-20] MEDS: ERTAPENEM SOD INJ 1 GM in SODIUM CHL 0.9% 100 ML IV SCH (10:00)
[2017-07-20] MEDS: FUROSEMIDE 20 MG/2 ML VIAL IV SCH (10:15)
[2017-07-20] MEDS: PANTOPRAZOLE 40 MG/10 ML VIAL IV SCH (10:15)
[2017-07-20] MEDS: ENOXAPARIN SOD 40 MG/0.4 ML SYRINGE SC SCH (10:16)
[2017-07-20] MEDS: METOPROLOL TARTRATE 25 MG TAB PO SCH ×2 (10:16→22:00)
[2017-07-20] MEDS: fentaNYL Drip 2500mCg/250mlNS 250 ML IV SCH (10:39)
[2017-07-20] MEDS: MIDAZOLAM DRIP 100 mg/100mL NS 100 ML IV SCH (14:01)
[2017-07-20] MEDS: PROPOFOL 100 ML IV SCH (22:05)
[2017-07-20] MEDS: NOREPINEPHRINE 8 MG/250ML KIT 250 ML IV SCH (23:00)
[2017-07-21] MEDS: FREE WATER GT SCH ×6 (02:00→22:00)
[2017-07-21] MEDS: ACCU-CHEK COMFORT CURVE STRIP VI SCH ×4 (03:56→17:53)
[2017-07-21] MEDS: LINEZOLID 600MG/300ML 300 ML IV SCH ×2 (03:57→15:54)
[2017-07-21 04:00] VITALS: BP 158/95
[2017-07-21 05:41] LABS: Basophils # (auto) 0.1 uL; Eosinophils # (auto) 0.1 uL; Hematocrit 33.8 % (41.0-53.0); Hemoglobin 10.8 g/dL (13.5-17.5); Lymphocytes # (auto) 1.2 uL; Nucleated Red Blood Cells % 0.1 %
[2017-07-21 05:42] LABS: Basophils % (auto) 1.3 % (0.0-2.0); Eosinophils % (auto) 1.4 % (0.0-7.0); Lymphocytes % (auto) 15.5 % (10.0-50.0); Mean Corpuscular Hemoglobin 24.1 pg (28.0-32.0); Mean Corpuscular Volume 75.2 fL (80.0-100.0); Monocytes % (auto) 13.3 % (0.0-12.0); Neutrophils # (auto) 5.1 uL; Neutrophils % (auto) 68.5 % (37.0-80.0); Platelet Count (auto) 493 10^3/uL (140-450); Red Blood Cells 4.49 10^6/uL (4.5-5.90); White Blood Cell 7.4 10^3/uL (4.4-10.8)
[2017-07-21 05:49] LABS: Red Cell Distribution Width 20.2 % (11.8-14.3)
[2017-07-21 05:56] LABS: BUN/Creatinine Ratio 17.8; Calcium 8.2 mg/dL (8.5-10.1); Potassium 3.6 mmol/L (3.5-5.1)
[2017-07-21] MEDS: ACETYLCYSTEINE 10 %(100MG/ML) SOL 4ML NEB SCH ×3 (05:58→22:28)
[2017-07-21] MEDS: ALBUTEROL SULF 2.5 MG/0.5ML(0.5%) NEB SOLN NEB PRN ×3 (05:58→22:28)
[2017-07-21] MEDS: METOCLOPRAMIDE HCL 5MG/ml INJ 2ml VIAL IV SCH ×3 (06:00→22:37)
[2017-07-21] MEDS: SPIRONOLACTONE 25 MG TAB PO SCH ×2 (06:00→17:52)
[2017-07-21] MEDS: InsuLIN REG 1unit/0.01ml Soln (100units/ml) SC SCH ×4 (06:00→17:53)
[2017-07-21] MEDS: INSULIN DETEMIR(LEVEMIR) 1unit/0.01ml Soln (100units/ml) SC SCH ×2 (10:00→22:00)
[2017-07-21] MEDS: LACTULOSE 20Gm/30ML SOLN GT SCH ×2 (10:00→21:37)
[2017-07-21] MEDS: FUROSEMIDE 20 MG/2 ML VIAL IV SCH (10:43)
[2017-07-21] MEDS: PANTOPRAZOLE 40 MG/10 ML VIAL IV SCH (10:43)
[2017-07-21] MEDS: ENOXAPARIN SOD 40 MG/0.4 ML SYRINGE SC SCH (10:43)
[2017-07-21] MEDS: METOPROLOL TARTRATE 25 MG TAB PO SCH ×2 (10:43→21:38)
[2017-07-21] MEDS: ERTAPENEM SOD INJ 1 GM in SODIUM CHL 0.9% 100 ML IV SCH (10:44)
[2017-07-21 10:47] VITALS: BP 158/95
[2017-07-21 12:00] VITALS: BP 139/89
[2017-07-21 16:00] VITALS: BP 145/93
[2017-07-21 19:50] VITALS: BP 143/86
[2017-07-21] MEDS: NOREPINEPHRINE 8 MG/250ML KIT 250 ML IV SCH (23:00)
[2017-07-21 23:51] VITALS: BP 162/90
[2017-07-22] MEDS: METOPROLOL TARTRATE 1MG/1ML-5ML VIAL IV PRN (00:22)
[2017-07-22] MEDS: FREE WATER GT SCH ×6 (02:00→22:00)
[2017-07-22 03:52] VITALS: BP 142/92
[2017-07-22] MEDS: LINEZOLID 600MG/300ML 300 ML IV SCH ×2 (04:00→15:36)
[2017-07-22 04:18] VITALS: BP 142/62
[2017-07-22] MEDS: ACCU-CHEK COMFORT CURVE STRIP VI SCH ×4 (05:22→18:13)
[2017-07-22] MEDS: InsuLIN REG 1unit/0.01ml Soln (100units/ml) SC SCH ×4 (05:22→18:16)
[2017-07-22] MEDS: METOCLOPRAMIDE HCL 5MG/ml INJ 2ml VIAL IV SCH ×3 (05:23→23:09)
[2017-07-22] MEDS: SPIRONOLACTONE 25 MG TAB PO SCH ×2 (05:23→18:16)
[2017-07-22] MEDS: ACETYLCYSTEINE 10 %(100MG/ML) SOL 4ML NEB SCH ×3 (06:47→22:30)
[2017-07-22] MEDS: ALBUTEROL SULF 2.5 MG/0.5ML(0.5%) NEB SOLN NEB PRN ×3 (06:47→22:30)
[2017-07-22 07:30] VITALS: BP 141/82
[2017-07-22] MEDS: LACTULOSE 20Gm/30ML SOLN GT SCH ×2 (09:30→23:08)
[2017-07-22] MEDS: PANTOPRAZOLE 40 MG/10 ML VIAL IV SCH (09:38)
[2017-07-22] MEDS: METOPROLOL TARTRATE 25 MG TAB PO SCH ×2 (09:38→23:08)
[2017-07-22] MEDS: FUROSEMIDE 20 MG/2 ML VIAL IV SCH (09:38)
[2017-07-22] MEDS: ENOXAPARIN SOD 40 MG/0.4 ML SYRINGE SC SCH (09:39)
[2017-07-22] MEDS: ERTAPENEM SOD INJ 1 GM in SODIUM CHL 0.9% 100 ML IV SCH (09:43)
[2017-07-22] MEDS: INSULIN DETEMIR(LEVEMIR) 1unit/0.01ml Soln (100units/ml) SC SCH ×2 (09:49→23:09)
[2017-07-22 11:49] VITALS: BP 147/87
[2017-07-22 16:43] VITALS: BP 130/77
[2017-07-22] MEDS: NOREPINEPHRINE 8 MG/250ML KIT 250 ML IV SCH (23:00)
[2017-07-23] MEDS: ACCU-CHEK COMFORT CURVE STRIP VI SCH ×4 (00:01→17:31)
[2017-07-23] MEDS: InsuLIN REG 1unit/0.01ml Soln (100units/ml) SC SCH ×4 (00:09→17:42)
[2017-07-23] MEDS: FREE WATER GT SCH ×3 (02:00→10:17)
[2017-07-23] MEDS: LINEZOLID 600MG/300ML 300 ML IV SCH ×2 (04:16→16:00)
[2017-07-23] MEDS: METOCLOPRAMIDE HCL 5MG/ml INJ 2ml VIAL IV SCH ×2 (07:01→14:00)
[2017-07-23] MEDS: SPIRONOLACTONE 25 MG TAB PO SCH ×2 (07:01→17:58)
[2017-07-23 08:00] VITALS: BP 161/98
[2017-07-23] MEDS: LACTULOSE 20Gm/30ML SOLN GT SCH (10:00)
[2017-07-23] MEDS: INSULIN DETEMIR(LEVEMIR) 1unit/0.01ml Soln (100units/ml) SC SCH (10:00)
[2017-07-23] MEDS: ALBUTEROL SULF 2.5 MG/0.5ML(0.5%) NEB SOLN NEB PRN (10:44)
[2017-07-23] MEDS: ACETYLCYSTEINE 10 %(100MG/ML) SOL 4ML NEB SCH (10:45)
[2017-07-23] MEDS: ERTAPENEM SOD INJ 1 GM in SODIUM CHL 0.9% 100 ML IV SCH (10:57)
[2017-07-23] MEDS: FUROSEMIDE 20 MG/2 ML VIAL IV SCH (10:58)
[2017-07-23] MEDS: PANTOPRAZOLE 40 MG/10 ML VIAL IV SCH (10:58)
[2017-07-23] MEDS: METOPROLOL TARTRATE 25 MG TAB PO SCH (10:58)
[2017-07-23] MEDS: ENOXAPARIN SOD 40 MG/0.4 ML SYRINGE SC SCH (10:58)
[2017-07-23 12:00] VITALS: BP 147/86
[2017-07-23 15:58] VITALS: BP 156/91
== END 2017-07-23 18:06 | DRG 870 ==
LOC: ER 19:05 → TELE 19:06 → ICU WEST 07-05 13:25 → DOU IN ICU 07-20 22:38
PROVIDERS: ADMIT Nurse Practitioner Family; ATTEND Internal Medicine
PROC: 5A1955Z Respiratory Ventilation, Greater than 96 Consecutive Hours (ICD-10-PCS; principal; 2017-07-03)
PROC: 0BH17EZ Insertion of Endotracheal Airway into Trachea, Via Natural or Artificial Opening (ICD-10-PCS; 2017-07-03)
PROC: 5A12012 Performance of Cardiac Output, Single, Manual (ICD-10-PCS; 2017-07-03)
PROC: 02HV33Z Insertion of Infusion Device into Superior Vena Cava, Percutaneous Approach (ICD-10-PCS; 2017-07-03)
PROC: 0D9670Z Drainage of Stomach with Drainage Device, Via Natural or Artificial Opening (ICD-10-PCS; 2017-07-03)
PROC: 0W9G3ZZ Drainage of Peritoneal Cavity, Percutaneous Approach (ICD-10-PCS; 2017-07-05)
PROC: 5A09357 Assistance with Respiratory Ventilation, Less than 24 Consecutive Hours, Continuous Positive Airway Pressure (ICD-10-PCS; 2017-07-19)
PROC: 0BJ08ZZ Inspection of Tracheobronchial Tree, Via Natural or Artificial Opening Endoscopic (ICD-10-PCS; 2017-07-19)
PROC: 5A09357 Assistance with Respiratory Ventilation, Less than 24 Consecutive Hours, Continuous Positive Airway Pressure (ICD-10-PCS; 2017-07-20)
DX: A41.02 Sepsis due to Methicillin resistant Staphylococcus aureus (principal); I21.4 Non-ST elevation (NSTEMI) myocardial infarction; J96.21 Acute and chronic respiratory failure with hypoxia; N17.0 Acute kidney failure with tubular necrosis; J69.0 Pneumonitis due to inhalation of food and vomit; G93.41 Metabolic encephalopathy; R65.21 Severe sepsis with septic shock; R57.0 Cardiogenic shock; R16.0 Hepatomegaly, not elsewhere classified; I50.43 Acute on chronic combined systolic (congestive) and diastolic (congestive) heart failure; J96.22 Acute and chronic respiratory failure with hypercapnia; K65.2 Spontaneous bacterial peritonitis; R18.8 Other ascites; N18.4 Chronic kidney disease, stage 4 (severe); I13.0 Hypertensive heart and chronic kidney disease with heart failure and stage 1 through stage 4 chronic kidney disease, or unspecified chronic kidney disease; E87.0 Hyperosmolality and hypernatremia; L02.213 Cutaneous abscess of chest wall; L03.313 Cellulitis of chest wall; M00.011 Staphylococcal arthritis, right shoulder; N39.0 Urinary tract infection, site not specified; R44.3 Hallucinations, unspecified; I42.9 Cardiomyopathy, unspecified; K74.60 Unspecified cirrhosis of liver; J44.9 Chronic obstructive pulmonary disease, unspecified; E03.9 Hypothyroidism, unspecified; E66.9 Obesity, unspecified; R04.0 Epistaxis; K21.9 Gastro-esophageal reflux disease without esophagitis; E78.5 Hyperlipidemia, unspecified; E11.40 Type 2 diabetes mellitus with diabetic neuropathy, unspecified; E11.22 Type 2 diabetes mellitus with diabetic chronic kidney disease; E11.65 Type 2 diabetes mellitus with hyperglycemia; E87.6 Hypokalemia; I25.10 Atherosclerotic heart disease of native coronary artery without angina pectoris; B96.89 Other specified bacterial agents as the cause of diseases classified elsewhere; M19.90 Unspecified osteoarthritis, unspecified site; J20.9 Acute bronchitis, unspecified; I49.9 Cardiac arrhythmia, unspecified; R79.1 Abnormal coagulation profile; Z79.82 Long term (current) use of aspirin; Z79.899 Other long term (current) drug therapy; Z80.0 Family history of malignant neoplasm of digestive organs; Z82.3 Family history of stroke; Z83.3 Family history of diabetes mellitus; Z95.0 Presence of cardiac pacemaker; Z99.81 Dependence on supplemental oxygen; Z79.4 Long term (current) use of insulin
CPT/HCPCS: 10030; 31500; 36415; 36556; 36600; 49083; 51702; 70450; 71010; 71045; 71260; 74176; 76604; 76705; 76775; 76942; 80048; 80053; 80076; 80202; 81001; 82140; 82550; 82570; 82805; 82962; 83735; 83880; 84156; 84300; 84443; 84484; 85007; 85025; 85027; 85610; 85652; 85730; 86141; 86703; 86850; 86900; 86901; 87040; 87070; 87077; 87081; 87086; 87088; 87147; 87186; 87205; 88341; 89051; 92610; 92950; 93005; 93306; 93971; 94002; 94003; 94640; 96365; 96367; 96375; 97163; 99291; C9113; J0171; J1335; J1450; J1815; J2250; J2543; J2704; J3010; J7042; J7060

== ENCOUNTER 2017-07-27 02:00 | Inpatient (IN) | payer OTHER ==
[~2017-07-27] VITALS: Ht 175.3 cm; Wt 81.8 kg
[2017-07-27 02:37] LABS: Basophils # (auto) 0.1 uL; Lymphocytes # (auto) 1.7 uL
[2017-07-27 02:39] LABS: Basophils % (auto) 0.6 % (0.0-2.0); Eosinophils # (auto) 0.3 uL; Eosinophils % (auto) 2.4 % (0.0-7.0); Hematocrit 40.1 % (41.0-53.0); Hemoglobin 12.9 g/dL (13.5-17.5); Lymphocytes % (auto) 16.1 % (10.0-50.0); Mean Corpuscular Hemoglobin 24.6 pg (28.0-32.0); Mean Corpuscular Hgb Conc. 32.2 g/dL (32.0-36.0); Mean Corpuscular Volume 76.3 fL (80.0-100.0); Monocytes # (auto) 0.6 uL; Monocytes % (auto) 6.1 % (0.0-12.0); Neutrophils # (auto) 7.9 uL; Neutrophils % (auto) 74.8 % (37.0-80.0); Nucleated Red Blood Cells % 0.3 %; Platelet Count (auto) 278 10^3/uL (140-450); Red Blood Cells 5.26 10^6/uL (4.5-5.90); White Blood Cell 10.5 10^3/uL (4.4-10.8)
[2017-07-27 02:40] LABS: Red Cell Distribution Width 22.5 % (11.8-14.3)
[2017-07-27 02:52] LABS: Albumin 2.3 g/dL (3.4-5.0); BUN/Creatinine Ratio 15.6; Calcium 8.1 mg/dL (8.5-10.1); INR 1.17 (0.9-1.15); Magnesium 1.7 mg/dL (1.6-2.6); Partial Thromboplastin Time 29.6 sec (22.64-33.71); Prothrombin Time 12.8 sec (9.37-12.3)
[2017-07-27 02:56] LABS: Potassium 2.6 mmol/L (3.5-5.1)
[2017-07-27 02:57] LABS: Bilirubin, Total 0.6 mg/dL (0.2-1.0); Total Protein 7.3 g/dL (6.4-8.2)
[2017-07-27] MEDS ORDERED: POTASSIUM CHL 20 Meq TABLET PO ONE (03:15)
[2017-07-27] MEDS ORDERED: LORazepam 2MG/ML-1ML VIAL IV ONE (03:15)
[2017-07-27 05:08] LABS: Urine Amorphous Crystal FEW /hpf (None Seen); Urine Bacteria FEW /hpf (None Seen); Urine Blood 2+ /uL (Negative); Urine Hyaline Cast FEW /lpf (0 - 2); Urine Specific Gravity 1.017 (1.001-1.035); Urine WBC 8 /hpf (0 - 3)
[2017-07-27 05:17] LABS: Alcohol, Urine < 3.0 mg/dL (0-5); Amphetamine Screen, Urine NEGATIVE (NEGATIVE); Barbiturate Scree,Urine NEGATIVE (NEGATIVE); Benzodiazephine Screen, Urine NEGATIVE (NEGATIVE); Cannabinoid Screen, Urine NEGATIVE (NEGATIVE); Cocaine Screen, Urine NEGATIVE (NEGATIVE); Opiate Scree,Urine NEGATIVE (NEGATIVE); Phencyclidine Screen, Urine NEGATIVE (NEGATIVE)
[2017-07-27] MEDS ORDERED: cefTRIAXone 1GM/10ml IVPUSH 10 ML IV SCH (09:27)
[2017-07-27] MEDS ORDERED: MORPHINE SULFATE 10 MG/ML INJ 1ML SDV IV PRN ×2 (09:30)
[2017-07-27] MEDS ORDERED: ACETAMINOPHEN 500 MG TAB PO PRN (09:30)
[2017-07-27] MEDS ORDERED: HYDROcodone-ACET 5/325MG TAB PO PRN (09:30)
[2017-07-27] MEDS ORDERED: TEMAZEPAM 15 MG CAP PO PRN (09:30)
[2017-07-27] MEDS ORDERED: NITROGLYCERIN 0.4 MG SL TAB SL PRN (09:30)
[2017-07-27] MEDS ORDERED: PROMETHAZINE HCL 25 MG/ML 1ML IV PRN (09:30)
[2017-07-27] MEDS ORDERED: LACTULOSE 20Gm/30ML SOLN PO PRN (09:30)
[2017-07-27] MEDS ORDERED: DEXTROSE (50%) 50ML SYRG IV PRN (09:30)
[2017-07-27] MEDS ORDERED: LORazepam 0.5 MG TAB PO PRN (09:30)
[2017-07-27] MEDS ORDERED: METOPROLOL TARTRATE 50 MG TAB PO SCH (10:00)
[2017-07-27] MEDS ORDERED: ASPirin 81 mg TAB PO ONE (10:00)
[2017-07-27 10:18] VITALS: BP 151/96
[2017-07-27] MEDS: ENALAPRIL MALEATE 2.5 MG TAB PO SCH (10:48)
[2017-07-27] MEDS: ENOXAPARIN SOD 40 MG/0.4 ML SYRINGE SC SCH (10:48)
[2017-07-27] MEDS: NITROGLYCERIN 0.2MG/HR TOPICAL PATCH TD SCH (10:48)
[2017-07-27] MEDS: FUROSEMIDE 40 MG/4 ML VIAL IV SCH (10:49)
[2017-07-27] MEDS: CLOPIDOGREL BISULFATE 75 MG TAB PO SCH (10:50)
[2017-07-27] MEDS: POTASSIUM CHL 20 Meq TABLET PO SCH (10:50)
[2017-07-27] MEDS: ASPirin-EC 81 mg tab PO SCH (10:50)
[2017-07-27 11:05] LABS: Folate (Folic Acid) 11.06 ng/mL (5.38-24)
[2017-07-27] MEDS: PANTOPRAZOLE 40 MG TAB PO SCH (11:05)
[2017-07-27] MEDS: ACCU-CHEK COMFORT CURVE STRIP VI SCH ×3 (11:42→22:18)
[2017-07-27] MEDS: InsuLIN REG 1unit/0.01ml Soln (100units/ml) SC SCH ×3 (11:47→22:00)
[2017-07-27] MEDS ORDERED: METOPROLOL TARTRATE 25 MG TAB PO ONE (12:00)
[2017-07-27] MEDS: hydrALAZINE HCL 25 MG TAB PO SCH ×2 (14:24→21:55)
[2017-07-27] MEDS: GABAPENTIN 300 MG CAP PO SCH ×2 (14:24→21:56)
[2017-07-27 16:20] VITALS: BP 131/71
[2017-07-27] MEDS ORDERED: VANCOMYCIN PER PHARMACY 0 MG IV SCH (19:15)
[2017-07-27] MEDS ORDERED: VANCOMYCIN 1GM/250ML 250 ML IV ONE (19:15)
[2017-07-27] MEDS ORDERED: PIPERACILLIN-TAZOB 3.375GM 50 ML IV ONE (19:30)
[2017-07-27] MEDS: METOPROLOL TARTRATE 25 MG TAB PO SCH (21:58)
[2017-07-27 22:00] VITALS: BP 83/60
[2017-07-27] MEDS ORDERED: ATORVASTATIN 20 MG TAB PO SCH (22:00)
[2017-07-27] MEDS ORDERED: CLINDAMYCIN 600MG IV 50 ML IV SCH (22:00)
[2017-07-27] MEDS: VANCOMYCIN 1GM/250ML 250 ML IV SCH (22:18)
[2017-07-28] MEDS: PIPERACILLIN-TAZOB 3.375GM 50 ML IV SCH ×3 (00:42→12:49)
[2017-07-28 04:54] VITALS: BP 91/68
[2017-07-28] MEDS: hydrALAZINE HCL 25 MG TAB PO SCH ×2 (05:13→14:00)
[2017-07-28] MEDS: InsuLIN REG 1unit/0.01ml Soln (100units/ml) SC SCH ×3 (05:13→17:30)
[2017-07-28] MEDS: GABAPENTIN 300 MG CAP PO SCH ×2 (05:13→15:21)
[2017-07-28 05:28] LABS: Eosinophils # (auto) 0.4 uL; Monocytes # (auto) 0.6 uL; Nucleated Red Blood Cells % 0.1 %
[2017-07-28 05:30] LABS: Basophils # (auto) 0.1 uL; Basophils % (auto) 0.8 % (0.0-2.0); Eosinophils % (auto) 4.7 % (0.0-7.0); Hematocrit 37.6 % (41.0-53.0); Hemoglobin 11.7 g/dL (13.5-17.5); Lymphocytes # (auto) 1.6 uL; Lymphocytes % (auto) 18.5 % (10.0-50.0); Mean Corpuscular Hgb Conc. 31.3 g/dL (32.0-36.0); Mean Corpuscular Volume 76.8 fL (80.0-100.0); Monocytes % (auto) 7.1 % (0.0-12.0); Neutrophils # (auto) 5.8 uL; Neutrophils % (auto) 68.9 % (37.0-80.0); Platelet Count (auto) 272 10^3/uL (140-450); Red Blood Cells 4.89 10^6/uL (4.5-5.90); White Blood Cell 8.4 10^3/uL (4.4-10.8)
[2017-07-28 05:43] LABS: Albumin 2.2 g/dL (3.4-5.0); BUN/Creatinine Ratio 14.8; Bilirubin, Total 0.6 mg/dL (0.2-1.0); Calcium 7.5 mg/dL (8.5-10.1)
[2017-07-28 05:56] LABS: Potassium 2.9 mmol/L (3.5-5.1)
[2017-07-28 06:30] LABS: Red Cell Distribution Width 22.3 % (11.8-14.3)
[2017-07-28] MEDS: ACCU-CHEK COMFORT CURVE STRIP VI SCH ×3 (06:47→17:00)
[2017-07-28] MEDS ORDERED: POTASSIUM CHL 20 Meq TABLET PO ONE (07:15)
[2017-07-28 09:00] VITALS: BP 91/65
[2017-07-28] MEDS: METOPROLOL TARTRATE 25 MG TAB PO SCH (10:00)
[2017-07-28] MEDS: NITROGLYCERIN 0.2MG/HR TOPICAL PATCH TD SCH (10:00)
[2017-07-28] MEDS: ENALAPRIL MALEATE 2.5 MG TAB PO SCH (10:00)
[2017-07-28] MEDS: PANTOPRAZOLE 40 MG TAB PO SCH (10:23)
[2017-07-28] MEDS: ASPirin-EC 81 mg tab PO SCH (10:24)
[2017-07-28] MEDS: POTASSIUM CHL 20 Meq TABLET PO SCH (10:24)
[2017-07-28] MEDS: CLOPIDOGREL BISULFATE 75 MG TAB PO SCH (10:24)
[2017-07-28] MEDS: ENOXAPARIN SOD 40 MG/0.4 ML SYRINGE SC SCH (10:26)
[2017-07-28] MEDS: FUROSEMIDE 40 MG/4 ML VIAL IV SCH (10:26)
[2017-07-28] MEDS: VANCOMYCIN 1GM/250ML 250 ML IV SCH (10:27)
[2017-07-28 13:58] VITALS: BP 91/65
== END 2017-07-28 17:50 | disposition hospice, home (50) | DRG 291 ==
LOC: ER 02:00 → EDBD 02:00 → TELE 02:01 → TELE-CENTR 15:09
PROVIDERS: ADMIT Internal Medicine; ATTEND Internal Medicine
DX: I11.0 Hypertensive heart disease with heart failure (principal); G93.41 Metabolic encephalopathy; J96.10 Chronic respiratory failure, unspecified whether with hypoxia or hypercapnia; R18.8 Other ascites; E87.0 Hyperosmolality and hypernatremia; M00.9 Pyogenic arthritis, unspecified; E11.40 Type 2 diabetes mellitus with diabetic neuropathy, unspecified; E11.621 Type 2 diabetes mellitus with foot ulcer; E87.1 Hypo-osmolality and hyponatremia; L97.518 Non-pressure chronic ulcer of other part of right foot with other specified severity; M86.9 Osteomyelitis, unspecified; L97.528 Non-pressure chronic ulcer of other part of left foot with other specified severity; N39.0 Urinary tract infection, site not specified; E11.69 Type 2 diabetes mellitus with other specified complication; Z51.5 Encounter for palliative care; I50.23 Acute on chronic systolic (congestive) heart failure; E03.9 Hypothyroidism, unspecified; E11.65 Type 2 diabetes mellitus with hyperglycemia; E78.5 Hyperlipidemia, unspecified; I25.10 Atherosclerotic heart disease of native coronary artery without angina pectoris; J44.9 Chronic obstructive pulmonary disease, unspecified; K21.9 Gastro-esophageal reflux disease without esophagitis; K70.30 Alcoholic cirrhosis of liver without ascites; I70.0 Atherosclerosis of aorta; L89.892 Pressure ulcer of other site, stage 2; E87.6 Hypokalemia; F41.9 Anxiety disorder, unspecified; G47.30 Sleep apnea, unspecified; Z99.81 Dependence on supplemental oxygen; Z83.3 Family history of diabetes mellitus; Z79.4 Long term (current) use of insulin; Z86.74 Personal history of sudden cardiac arrest; Z86.14 Personal history of Methicillin resistant Staphylococcus aureus infection; Z80.0 Family history of malignant neoplasm of digestive organs; Z82.3 Family history of stroke; I25.2 Old myocardial infarction; Z87.01 Personal history of pneumonia (recurrent); Z87.440 Personal history of urinary (tract) infections; Z82.61 Family history of arthritis; Z79.899 Other long term (current) drug therapy; Z84.1 Family history of disorders of kidney and ureter
CPT/HCPCS: 36415; 51702; 70450; 71045; 71250; 80053; 80307; 80320; 81001; 82140; 82550; 82607; 82746; 82962; 83036; 83605; 83735; 83880; 84443; 84484; 85025; 85379; 85610; 85730; 86141; 87040; 87081; 87086; 93005; 96372; 96374; 96375; J1815; J2543

== ENCOUNTER 2017-11-06 06:19 | Day surgery (SDC) | payer OTHER ==
[~2017-11-06] VITALS: Ht 170.2 cm; Wt 72.6 kg
[~2017-11-06 06:19] MED LIST changes: -[UNRECOGNIZED DRUG - CODE]
[2017-11-06] MEDS ORDERED: IODIXANOL 320MG/ML 100ML BTL IV ONE (07:16)
[2017-11-06] MEDS ORDERED: LIDOCAINE 2%HCL (LOCAL ANESTH.) INJ 20ML MDV ONE (07:17)
[2017-11-06] MEDS ORDERED: fentaNYL CITRATE 100 MCG/2 ML VL ONE (08:07)
[2017-11-06] MEDS ORDERED: MIDAZOLAM HCL 1MG/1ML-2 ML VIAL ONE (08:07)
[2017-11-06] MEDS ORDERED: SODIUM CHL 0.9% 0 ML ONE (08:08)
[2017-11-06] MEDS ORDERED: ANGIOMAX 250 MG VIAL IV ONE (08:08)
== END 2017-11-06 11:30 | disposition home or self-care (01) ==
LOC: CATH 06:19
PROVIDERS: ATTEND Internal Medicine
DX: I73.9 Peripheral vascular disease, unspecified (principal); E78.5 Hyperlipidemia, unspecified; I25.2 Old myocardial infarction; Z87.891 Personal history of nicotine dependence; E11.9 Type 2 diabetes mellitus without complications; I11.0 Hypertensive heart disease with heart failure; I50.9 Heart failure, unspecified; Z95.0 Presence of cardiac pacemaker; Z79.82 Long term (current) use of aspirin; Z79.899 Other long term (current) drug therapy; Z80.0 Family history of malignant neoplasm of digestive organs; Z83.3 Family history of diabetes mellitus; Z82.3 Family history of stroke
CPT/HCPCS: 82962; 93005; 93454; C1760; C1769; C1894; J1644; J2250; J3010; J7030; Q9967; 99152

== ENCOUNTER 2018-02-09 20:00 | Inpatient (IN) | payer OTHER ==
[~2018-02-09] VITALS: Ht 170.2 cm; Wt 68.4 kg
[~2018-02-09 20:00] MED LIST changes: +HYDR-4296 PO; -HYDR25TA35 PO
[2018-02-09] MEDS ORDERED: ONDANSETRON HCL 4 MG/2 ML VIAL IV ONE (21:15)
[2018-02-09] MEDS ORDERED: ACETAMINOPHEN 325 MG TAB PO ONE (21:15)
[2018-02-09] MEDS ORDERED: MORPHINE SULFATE 4 MG/ML SYR/VIAL IV ONE (21:15)
[2018-02-09] MEDS ORDERED: SODIUM CHLORIDE 0.9% 1,000 ML IV ONE (21:15)
[2018-02-09 21:27] LABS: Hemoglobin 11.6 g/dL (13.5-17.5); Mean Corpuscular Volume 77.2 fL (80.0-100.0); Red Cell Distribution Width 17.7 % (11.8-14.3)
[2018-02-09 21:28] LABS: Hematocrit 35.6 % (41.0-53.0); Mean Corpuscular Hemoglobin 25.2 pg (28.0-32.0); Mean Corpuscular Hgb Conc. 32.6 g/dL (32.0-36.0); Platelet Count (auto) 613 10^3/uL (140-450); White Blood Cell 16.7 10^3/uL (4.4-10.8)
[2018-02-09 21:37] LABS: Band Neutrophils % (manual) 0; Basophils % (manual) 0 (0.0-2.0); Blast Cells 0; Eosinophils % (manual) 0 (0-7); Metamyelocytes % 0; Myelocytes % 0; Promyelocytes % 0; Reactive Lymphocytes 0
[2018-02-09 21:43] LABS: Albumin 2.1 g/dL (3.4-5.0); BUN/Creatinine Ratio 18.3; Calcium 8.5 mg/dL (8.5-10.1); INR 1.25 (0.9-1.15); Magnesium 1.6 mg/dL (1.6-2.6); Partial Thromboplastin Time 30.8 sec (23.78-33.04); Potassium 4.2 mmol/L (3.5-5.1); Prothrombin Time 13.2 sec (9.27-12.13)
[2018-02-09 21:48] LABS: Bilirubin, Total 0.3 mg/dL (0.2-1.0); Total Protein 9.8 g/dL (6.4-8.2)
[2018-02-09 22:17] LABS: Urine Bacteria NONE SEEN /hpf (None Seen); Urine Blood 2+ /uL (Negative); Urine Mucus FEW (None Seen); Urine Specific Gravity 1.014 (1.001-1.035); Urine WBC 1 /hpf (0 - 3)
[2018-02-09 22:19] LABS: Lymphocytes % (manual) 8 (10.0-50.0); Monocytes % (manual) 6 (0-12)
[2018-02-10] MEDS ORDERED: MORPHINE SULFATE 4 MG/ML SYR/VIAL IV ONE ×2 (00:45→06:00)
[2018-02-10] MEDS ORDERED: FUROSEMIDE 20 MG/2 ML VIAL IV ONE (03:45)
[2018-02-10] MEDS ORDERED: HEPARIN SODIUM (PORCINE) 5000 UNITS/ML 1ML VIAL IV ONE (05:30)
[2018-02-10] MEDS ORDERED: HEPARIN DRIP/D5W 100UNITS/ML 250 ML IV SCH ×2 (06:00→14:15)
[2018-02-10] MEDS ORDERED: DEXTROSE (50%) 50ML SYRG IV PRN (09:45)
[2018-02-10] MEDS ORDERED: HALOPERIDOL 1 MG TAB PO PRN (09:45)
[2018-02-10] MEDS ORDERED: traMADol HCL 50 MG TAB PO PRN (09:45)
[2018-02-10] MEDS ORDERED: cefTRIAXone 1GM/10ml IVPUSH 10 ML IV ONE (09:45)
[2018-02-10] MEDS ORDERED: NITROGLYCERIN 0.4 MG SL TAB SL PRN (10:00)
[2018-02-10] MEDS: FAMOTIDINE 20 MG TAB PO SCH ×2 (10:00→23:25)
[2018-02-10] MEDS: POTASSIUM CHL 20 Meq TABLET PO SCH (10:00)
[2018-02-10] MEDS ORDERED: MORPHINE SULF INJ 2 MG/ML SYRINGE 1ML IV PRN (10:00)
[2018-02-10] MEDS: SPIRONOLACTONE 25 MG TAB PO SCH (10:00)
[2018-02-10] MEDS ORDERED: ONDANSETRON HCL 4 MG/2 ML VIAL IV PRN (10:00)
[2018-02-10] MEDS: METOPROLOL TARTRATE 25 MG TAB PO SCH (10:00)
[2018-02-10] MEDS ORDERED: DOCUSATE SOD 100 MG CAP PO PRN (10:00)
[2018-02-10] MEDS ORDERED: ACETAMINOPHEN 325 MG TAB PO PRN (10:00)
[2018-02-10] MEDS: MORPHINE SULFATE 4 MG/ML SYR/VIAL IV PRN (10:47)
[2018-02-10] MEDS: ZINC SULFATE 220mg CAP or TAB PO SCH (10:50)
[2018-02-10] MEDS: ASPirin-EC 81 mg tab PO SCH (10:50)
[2018-02-10] MEDS: FUROSEMIDE 20 MG TAB PO SCH (10:50)
[2018-02-10] MEDS: ASCORBIC ACID 500 MG TAB PO SCH ×2 (10:50→23:25)
[2018-02-10] MEDS: MULTIPLE VITAMIN TAB PO SCH (10:50)
[2018-02-10] MEDS ORDERED: CLINDAMYCIN 300MG IV 50 ML IV ONE (11:00)
[2018-02-10] MEDS: SODIUM CHLORIDE 0.9% 1,000 ML IV SCH (11:51)
[2018-02-10] MEDS: metFORMIN HYDROCHLORIDE 500 MG TAB PO SCH ×2 (11:51→18:01)
[2018-02-10] MEDS: Glucerna Carbsteady SHAKE Vanilla 8oz PO SCH ×3 (11:53→22:00)
[2018-02-10] MEDS: ACCU-CHEK COMFORT CURVE STRIP VI SCH ×3 (11:53→23:25)
[2018-02-10 12:10] VITALS: BP 114/66
[2018-02-10] MEDS: InsuLIN REG 1unit/0.01ml Soln (100units/ml) SC SCH ×3 (12:10→23:50)
[2018-02-10] MEDS ORDERED: TEMA15CA PO (12:33)
[2018-02-10] MEDS ORDERED: SPIR25TA89 PO (12:33)
[2018-02-10] MEDS ORDERED: HALO2CON8 PO (12:33)
[2018-02-10] MEDS ORDERED: FURO20TA3 PO (12:33)
[2018-02-10] MEDS ORDERED: TRAM50TA2 PO (12:33)
[2018-02-10] MEDS ORDERED: MORP30TA PO (12:33)
[2018-02-10] MEDS ORDERED: POTA20TA53 PO (12:33)
[2018-02-10] MEDS ORDERED: HYDR-4683 PO (12:33)
[2018-02-10 13:00] VITALS: BP 114/66
[2018-02-10 13:41] LABS: INR 1.26 (0.9-1.15); Partial Thromboplastin Time 37.3 sec (23.78-33.04); Prothrombin Time 13.3 sec (9.27-12.13)
[2018-02-10] MEDS: GABAPENTIN 300 MG CAP PO SCH ×2 (14:03→23:25)
[2018-02-10 16:33] VITALS: BP 151/77
[2018-02-10 21:29] LABS: INR 1.2 (0.9-1.15); Prothrombin Time 12.7 sec (9.27-12.13)
[2018-02-10 22:00] VITALS: BP 135/71
[2018-02-10] MEDS: CLINDAMYCIN 300MG IV 50 ML IV SCH (23:24)
[2018-02-11] MEDS: HYDROcodone-ACET 5/325MG TAB PO PRN ×2 (00:09→09:39)
[2018-02-11] MEDS: METOPROLOL TARTRATE 25 MG TAB PO SCH ×3 (01:42→22:55)
[2018-02-11] MEDS: SODIUM CHLORIDE 0.9% 1,000 ML IV SCH ×2 (02:27→19:07)
[2018-02-11 05:00] VITALS: BP 117/57
[2018-02-11] MEDS: CLINDAMYCIN 300MG IV 50 ML IV SCH ×2 (05:44→13:39)
[2018-02-11] MEDS: GABAPENTIN 300 MG CAP PO SCH ×3 (05:45→22:34)
[2018-02-11] MEDS: MORPHINE SULFATE 4 MG/ML SYR/VIAL IV PRN ×2 (05:45→20:45)
[2018-02-11] MEDS: TEMAZEPAM 15 MG CAP PO PRN ×2 (06:22→22:35)
[2018-02-11] MEDS: ACCU-CHEK COMFORT CURVE STRIP VI SCH ×4 (07:00→22:35)
[2018-02-11] MEDS: metFORMIN HYDROCHLORIDE 500 MG TAB PO SCH ×3 (07:15→18:17)
[2018-02-11] MEDS: InsuLIN REG 1unit/0.01ml Soln (100units/ml) SC SCH ×4 (07:16→22:54)
[2018-02-11 07:31] LABS: Basophils # (auto) 0.1 uL; Eosinophils # (auto) 0 uL; Lymphocytes # (auto) 1.4 uL; Monocytes # (auto) 0.7 uL
[2018-02-11 07:34] LABS: Basophils % (auto) 0.5 % (0.0-2.0); Eosinophils % (auto) 0.2 % (0.0-7.0); Hematocrit 31.9 % (41.0-53.0); Hemoglobin 10.5 g/dL (13.5-17.5); Lymphocytes % (auto) 12.3 % (10.0-50.0); Mean Corpuscular Hemoglobin 25.4 pg (28.0-32.0); Mean Corpuscular Hgb Conc. 32.9 g/dL (32.0-36.0); Mean Corpuscular Volume 77.2 fL (80.0-100.0); Monocytes % (auto) 6.2 % (0.0-12.0); Neutrophils % (auto) 80.8 % (37.0-80.0); Platelet Count (auto) 536 10^3/uL (140-450); Red Blood Cells 4.14 10^6/uL (4.5-5.90); Red Cell Distribution Width 17.5 % (11.8-14.3); White Blood Cell 11.2 10^3/uL (4.4-10.8)
[2018-02-11 07:48] LABS: Albumin 1.7 g/dL (3.4-5.0); BUN/Creatinine Ratio 22.4; Calcium 8.1 mg/dL (8.5-10.1); Potassium 3.9 mmol/L (3.5-5.1)
[2018-02-11 07:51] LABS: Bilirubin, Total 0.3 mg/dL (0.2-1.0); Total Protein 8.6 g/dL (6.4-8.2)
[2018-02-11] MEDS ORDERED: HEPARIN DRIP/D5W 100UNITS/ML 250 ML IV SCH (08:00)
[2018-02-11 09:00] VITALS: BP 128/56
[2018-02-11] MEDS: ZINC SULFATE 220mg CAP or TAB PO SCH (09:36)
[2018-02-11] MEDS: ASCORBIC ACID 500 MG TAB PO SCH ×2 (09:36→22:35)
[2018-02-11] MEDS: MULTIPLE VITAMIN TAB PO SCH (09:36)
[2018-02-11] MEDS: cefTRIAXone 1GM/10ml IVPUSH 10 ML IV SCH (09:37)
[2018-02-11] MEDS: ASPirin-EC 81 mg tab PO SCH (09:38)
[2018-02-11] MEDS: POTASSIUM CHL 20 Meq TABLET PO SCH (09:39)
[2018-02-11] MEDS: FAMOTIDINE 20 MG TAB PO SCH ×2 (09:39→22:35)
[2018-02-11] MEDS: FUROSEMIDE 20 MG TAB PO SCH (09:40)
[2018-02-11] MEDS: SPIRONOLACTONE 25 MG TAB PO SCH (09:42)
[2018-02-11] MEDS: Glucerna Carbsteady SHAKE Vanilla 8oz PO SCH ×4 (09:43→22:00)
[2018-02-11 13:21] VITALS: BP 124/60
[2018-02-11 14:34] LABS: INR 1.11 (0.9-1.15); Partial Thromboplastin Time 33.9 sec (23.78-33.04); Prothrombin Time 11.8 sec (9.27-12.13)
[2018-02-11 17:26] VITALS: BP 125/75
[2018-02-11 22:00] VITALS: BP 116/70
[2018-02-11] MEDS: CLINDAMYCIN 600MG IV 50 ML IV SCH (22:34)
[2018-02-11] MEDS: HEPARIN DRIP/D5W 100UNITS/ML 250 ML IV SCH (23:26)
[2018-02-12 05:00] VITALS: BP 127/66
[2018-02-12] MEDS: MORPHINE SULFATE 4 MG/ML SYR/VIAL IV PRN ×3 (05:16→15:40)
[2018-02-12] MEDS: GABAPENTIN 300 MG CAP PO SCH ×2 (05:36→12:47)
[2018-02-12] MEDS: CLINDAMYCIN 600MG IV 50 ML IV SCH (05:36)
[2018-02-12 05:51] LABS: Basophils # (auto) 0.2 uL; Eosinophils # (auto) 0 uL; Eosinophils % (auto) 0.1 % (0.0-7.0); Lymphocytes # (auto) 1.7 uL; Mean Corpuscular Volume 77.5 fL (80.0-100.0)
[2018-02-12 05:53] LABS: Basophils % (auto) 1.2 % (0.0-2.0); Hematocrit 30.5 % (41.0-53.0); Lymphocytes % (auto) 13.8 % (10.0-50.0); Mean Corpuscular Hemoglobin 25.5 pg (28.0-32.0); Mean Corpuscular Hgb Conc. 32.9 g/dL (32.0-36.0); Monocytes # (auto) 0.5 uL; Monocytes % (auto) 4.5 % (0.0-12.0); Neutrophils # (auto) 9.8 uL; Neutrophils % (auto) 80.4 % (37.0-80.0); Platelet Count (auto) 519 10^3/uL (140-450); Red Blood Cells 3.93 10^6/uL (4.5-5.90); Red Cell Distribution Width 17.4 % (11.8-14.3); White Blood Cell 12.2 10^3/uL (4.4-10.8)
[2018-02-12 06:01] LABS: INR 1.15 (0.9-1.15); Partial Thromboplastin Time 42.5 sec (23.78-33.04); Prothrombin Time 12.2 sec (9.27-12.13)
[2018-02-12 06:05] LABS: BUN/Creatinine Ratio 16.7; Potassium 3.7 mmol/L (3.5-5.1)
[2018-02-12] MEDS: HEPARIN DRIP/D5W 100UNITS/ML 250 ML IV SCH (06:25)
[2018-02-12] MEDS: ACCU-CHEK COMFORT CURVE STRIP VI SCH ×3 (06:33→17:00)
[2018-02-12] MEDS: metFORMIN HYDROCHLORIDE 500 MG TAB PO SCH ×3 (06:59→18:00)
[2018-02-12] MEDS: InsuLIN REG 1unit/0.01ml Soln (100units/ml) SC SCH ×3 (06:59→17:00)
[2018-02-12] MEDS: Glucerna Carbsteady SHAKE Vanilla 8oz PO SCH ×3 (07:47→18:00)
[2018-02-12] MEDS: HYDROcodone-ACET 5/325MG TAB PO PRN ×2 (08:31→12:49)
[2018-02-12 09:00] VITALS: BP 126/63
[2018-02-12] MEDS: FAMOTIDINE 20 MG TAB PO SCH (10:49)
[2018-02-12] MEDS: cefTRIAXone 1GM/10ml IVPUSH 10 ML IV SCH (10:49)
[2018-02-12] MEDS: ZINC SULFATE 220mg CAP or TAB PO SCH (10:50)
[2018-02-12] MEDS: POTASSIUM CHL 20 Meq TABLET PO SCH (10:50)
[2018-02-12] MEDS: SPIRONOLACTONE 25 MG TAB PO SCH (10:50)
[2018-02-12] MEDS: MULTIPLE VITAMIN TAB PO SCH (10:50)
[2018-02-12] MEDS: ASPirin-EC 81 mg tab PO SCH (10:51)
[2018-02-12] MEDS: METOPROLOL TARTRATE 25 MG TAB PO SCH (10:51)
[2018-02-12] MEDS: FUROSEMIDE 20 MG TAB PO SCH (10:51)
[2018-02-12] MEDS: ASCORBIC ACID 500 MG TAB PO SCH (10:52)
[2018-02-12 13:00] VITALS: BP_SYST 124; BP_SYST 160; BP_DIAS 62; BP_DIAS 97
[2018-02-12 13:34] VITALS: BP 124/62
[2018-02-12 14:09] VITALS: BP 124/62
[2018-02-12 17:00] VITALS: BP 138/60
== END 2018-02-12 18:40 | disposition hospice, home (50) | DRG 871 ==
LOC: ER 20:00 → EDBD 20:00 → OVERFLOW 20:01 → CENTRAL 02-10 11:20
PROVIDERS: ADMIT Internal Medicine; ATTEND Hospitalist
DX: A41.02 Sepsis due to Methicillin resistant Staphylococcus aureus (principal); G93.40 Encephalopathy, unspecified; I77.4 Celiac artery compression syndrome; I13.0 Hypertensive heart and chronic kidney disease with heart failure and stage 1 through stage 4 chronic kidney disease, or unspecified chronic kidney disease; E87.1 Hypo-osmolality and hyponatremia; D68.9 Coagulation defect, unspecified; E44.0 Moderate protein-calorie malnutrition; K55.1 Chronic vascular disorders of intestine; M86.172 Other acute osteomyelitis, left ankle and foot; J44.9 Chronic obstructive pulmonary disease, unspecified; E78.5 Hyperlipidemia, unspecified; K21.9 Gastro-esophageal reflux disease without esophagitis; D50.9 Iron deficiency anemia, unspecified; K70.30 Alcoholic cirrhosis of liver without ascites; E11.21 Type 2 diabetes mellitus with diabetic nephropathy; E11.22 Type 2 diabetes mellitus with diabetic chronic kidney disease; E11.51 Type 2 diabetes mellitus with diabetic peripheral angiopathy without gangrene; E11.621 Type 2 diabetes mellitus with foot ulcer; G47.30 Sleep apnea, unspecified; I25.84 Coronary atherosclerosis due to calcified coronary lesion; I70.1 Atherosclerosis of renal artery; E11.69 Type 2 diabetes mellitus with other specified complication; L97.519 Non-pressure chronic ulcer of other part of right foot with unspecified severity; M48.061 Spinal stenosis, lumbar region without neurogenic claudication; M47.896 Other spondylosis, lumbar region; R29.6 Repeated falls; L97.529 Non-pressure chronic ulcer of other part of left foot with unspecified severity; I50.9 Heart failure, unspecified; N18.2 Chronic kidney disease, stage 2 (mild); Z86.14 Personal history of Methicillin resistant Staphylococcus aureus infection; Z86.74 Personal history of sudden cardiac arrest; Z89.429 Acquired absence of other toe(s), unspecified side; Z91.81 History of falling; Z98.1 Arthrodesis status; Z79.899 Other long term (current) drug therapy; I25.2 Old myocardial infarction
CPT/HCPCS: 36415; 51702; 71045; 72131; 73700; 80048; 80053; 80320; 81001; 82140; 82962; 83036; 83540; 83605; 83735; 83880; 84443; 84484; 85007; 85025; 85027; 85610; 85730; 87040; 87077; 87081; 87186; 93005; 94761; 96361; 96374; 96375; 96376; 97163; J0696; J1815; J2405; J3490